=== PATIENT | female | born 1960 | race Caucasian/White ===

== ENCOUNTER 2020-12-22 10:55 | Outpatient (CLI) | payer BC, SELFPAY ==
--- NOTE | ~2020-12-22 | MM_ITS ---
EXAMINATION: MM screening renata BI w olga lidia HISTORY: Screening mammogram TECHNIQUE: Craniocaudal and mediolateral oblique 3-D tomosynthesis images were obtained and synthetic 2-D images were generated. CAD analysis was submitted and interpreted. COMPARISON: No prior mammogram is available for comparison at this institution. BREAST PARENCHYMAL COMPOSITION: There are scattered areas of fibroglandular density. FINDINGS: Scattered benign-appearing calcifications are present. There is no evidence of suspicious m ass, calcification, or architectural distortion to suggest malignancy in either breast. IMPRESSION: 1. No mammographic evidence of malignancy. 2. Recommend routine screening mammography in one year. BI-RADS Category 2: Benign finding(s). Reviewed, dictated and finalized at location A. CULTURAL SYSTEMS SPECIALIST
== END 2020-12-22 10:56 | disposition home or self-care (01) ==
DX: Z12.31 Encounter for screening mammogram for malignant neoplasm of breast (principal)
CPT/HCPCS: 77063; 77067

== ENCOUNTER 2021-01-03 03:24 | Emergency (ER) | payer BC, SELFPAY ==
--- NOTE | ~2021-01-03 | CT_ITS ---
EXAMINATION: CT abdomen pelvis w con DATE: 01/03/2021 04:35 INDICATION: Abdominal pain. TECHNIQUE: Computed tomography (CT) of the abdomen and pelvis was performed with 100 mL Omnipaque 350 intravenous contrast. Automated exposure control and iterative reconstruction technique were employe d. The dose-length product was 1476.86 mGy-cm. COMPARISON: chest CT 10/19/13 FINDINGS: The visualized portions of the lung bases demonstrate mild atelectasis. There is a 7 mm nod ule in left lower lobe, stable from 10/19/13, likely benign. Calcified bilateral lung nodules and adrienne cified hilar and mediastinal lymph nodes are consistent with old granulomatous disease. There is mild emphysema. No pleural effusion. The heart size is normal. No pericardial effusion. There is fluid in the esophagus. There is a small sliding hiatal hernia. The liver is normal. There are changes of cho lecystectomy. Calcifications in the spleen are consistent with old granulomatous disease. The pancrea s and right adrenal gland are normal. There is a 1.8 cm mass in left adrenal gland. The kidneys are n ormal. There is diverticulosis of the colon without evidence of diverticulitis. There is liquid stool in the colon suggestive of diarrhea. The appendix is normal. There is wall thickening of some loops of small bowel. There are no dilated loops of bowel. There are no pathologically enlarged lymph nodes . There is no free intraperitoneal fluid. There is severe lumbar spondylosis. There is moderate thora cic spondylosis. IMPRESSION: 1. Wall thickening of small bowel loops, likely enteritis. 2. 1.8 cm left adrenal mass, new from 10/19/2013. In the absence of known malignancy, this finding is likely an adenoma. Reviewed, dictated and finalized at location A. G[facility] PROFESSIONAL DEVELOPMENT IMPRESSION: 1. Wall thickening of small bowel loops, likely enteritis. 2. 1.8 cm left adrenal mass, new from 10/19/2013. In the absence of known malig yuan, this finding is likely an adenoma.
[2021-01-03 03:34] VITALS: BP 111/67; PULSE 92; RESP 22; TEMP 37.6; O2SAT 95
--- NOTE | 2021-01-03 03:43 | ED.ABDPAIN ---
HPI - Abdominal Pain General Chief Complaint: Abdominal Pain Stated Complaint: abd pain, n/v, headache, back pain Time Seen by Provider: 01/03/21 03:36 Source: patient Mode of arrival: ambulatory Limitations: no limitations History of Present Illness HPI narrative: Patient is a 60-year-old female complaining of nausea vomiting and diarrhea accompanied by diffuse abdominal pain that started 5 hours ago. Patient states that her vomitus is nonbloody nonbilious. Patient states that her diarrhea is loose watery. Location: diffuse Severity: moderate Quality: cramping and dull Radiation: none Migration to: no migration Exacerbating factors: bowel movement and vomiting Relieving factors: nothing Related Data Home Medications Medication Instructions Recorded Confirmed Spiriva Respimat 2 puff INHALATION DAILY 09/13/19 09/13/19 albuterol sulfate [Ventolin HFA] 2 puff INHALATION QID PRN 09/13/19 09/13/19 clonazepam 2 mg PO HS 09/13/19 09/13/19 esomeprazole magnesium [Nexium] 40 mg PO DAILY 09/13/19 09/13/19 ferrous sulfate [FerrouSul] 325 mg PO DAILY 09/13/19 09/13/19 fluticasone propion-salmeterol 1 inh INHALATION Q12H 09/13/19 09/13/19 [Advair Diskus] fluticasone propionate [Allergy 2 spray INTRANASAL DAILY 09/13/19 09/13/19 Relief (fluticasone)] isosorbide mononitrate 30 mg PO DAILY 09/13/19 09/13/19 potassium chloride 20 meq PO BID 09/13/19 09/13/19 sertraline 50 mg PO DAILY 09/13/19 09/13/19 sertraline 100 mg PO DAILY 09/13/19 09/13/19 hydrocortisone [Cortef] 30 mg PO BID 09/14/19 09/14/19 Allergies Allergy/AdvReac Type Severity Reaction Status Date / Time clams Allergy Unknown Verified 01/03/21 03:37 codeine Allergy Unknown Verified 01/03/21 03:37 horseradish Allergy Unknown Verified 01/03/21 03:37 indomethacin [From Indocin] Allergy Unknown Verified 01/03/21 03:37 shrimp Allergy Unknown Verified 01/03/21 03:37 Review of Systems Review of Systems: All systems reviewed & are unremarkable except as noted in HPI and below Constitutional: Constitutional: Denies body ache(s), Denies chills, Denies excessive sweating, Denies fatigue, Denies fever(s), Denies headache(s), Denies lethargy, Denies malaise, Denies weakness and Denies weight loss Eyes: Eyes: Denies blurry vision, Denies change in vision and Denies loss of vision ENT: Denies dizziness, Denies ear discharge, Denies headache(s), Denies lip swelling, Denies epistaxis, Denies nasal congestion, Denies neck pain, Denies throat swelling and Denies tongue swelling Cardiovascular: Cardiovascular: Denies chest pain, Denies chest pain at rest, Denies chest pain with activity, Denies diaphoresis, Denies rapid heart rate, Denies edema, Denies irregular heart rhythm, Denies lightheadedness, Denies palpitations, Denies dyspnea and Denies dyspnea on exertion Respiratory: Respiratory: Denies chest congestion, Denies cough, Denies hemoptysis, Denies dyspnea and Denies dyspnea on exertion Gastrointestinal: Gastrointestinal: Denies melena, Denies hematochezia and Denies hematemesis Musculoskeletal: Musculoskeletal: Denies abnormal gait, Denies deformity, Denies joint swelling, Denies limited range of motion, Denies neck pain and Denies numbness Neurologic: Denies Abnormal speech present, Denies abnormal gait, Denies confusion, Denies dizziness, Denies headache(s), Denies focal weakness, Denies loss of vision, Denies numbness, Denies Other visual disturbances, Denies Sensory deficit (Neuro) and Denies weakness Psychiatric: Psychiatric: Denies confusion, Denies depression, Denies auditory hallucinations, Denies homicidal ideation and Denies suicidal ideation Endocrine: Endocrine: Denies cold intolerance, Denies excessive sweating, Denies fatigue, Denies heat intolerance and Denies palpitations Hematologic/Lymphatic: Hematologic/Lymphatic: Denies easy bleeding and Denies easy bruising Allergic/Immunologic: Allergic/Immunologic: Denies lip swelling, Denies throat swelling and Denies ton
[2021-01-03 03:56] LABS: Basophils Absolute Auto 0.1 K/mm3 (0.0-0.1); Basophils Percent Auto 0.3 % (0.2-1.2); Eosinophils Absolute Auto 0.1 K/mm3 (0-0.3); Eosinophils Percent Auto 0.3 % (0-4.4); Hematocrit 48.9 % (37.0-47.0); Hemoglobin 15.7 g/dL (12.0-15.0); Immature Granulocyte Absolute 0.06 K/mm3 (0.00-0.031); Immature Granulocyte Percent A 0.4 % (0-0.5); Lymphocytes Absolute Auto 1.65 K/mm3 (0.9-3.2); Mean Corpuscular HGB Conc 32.1 g/dl (32-36); Mean Corpuscular Hemoglobin 28.2 pg (26-34); Mean Corpuscular Volume 87.8 fl (80-100); Mean Platelet Volume 9.6 fl (7.4-10.4); Monocytes Absolute Auto 0.9 K/mm3 (0.1-0.6); Monocytes Percent Auto 5.6 % (2.6-8.5); Neutrophils Absolute Auto 12.4 K/mm3 (1.3-6.7); Neutrophils Percent Auto 82.4 % (45.5-73.1); Platelet Count Result 301 k/mm3 (150-375); Red Blood Count 5.57 M/mm3 (4.2-5.4); Red Cell Distribution Width 14.6 % (11.5-14.5); White Blood Count 15.1 K/mm3 (4.5-10.0)
[2021-01-03 03:59] LABS: Estimated CRCL calculation 74 ml/min; Estimated Glomerular Filt Rate > 60
[2021-01-03] MEDS: SODIUM CHLORIDE 0.9% IV 1,000 ML 999 ML IV CONT ×2 (04:02→05:53)
[2021-01-03] MEDS: MORPHINE SULFATE (*CRX) 4 MG/ML INJ IV PUSH (04:02)
[2021-01-03] MEDS: ONDANSETRON INJ 4 MG/2 ML VIAL IV PUSH (04:02)
[2021-01-03 04:10] LABS: Alanine Aminotransferase 40 U/L (4-35); Alkaline Phosphatase 105 U/L (38-126); Anion Gap 4 mmol/L (8-16); Aspartate Amino Transferase 42 U/L (14-36); Bilirubin,Total 0.5 mg/dL (0.2-1.3); Blood Urea Nitrogen 25 mg/dL (7-17); Calcium 9.2 mg/dL (8.4-10.2); Carbon Dioxide 31 mmol/L (22-30); Chloride 106 mmol/L (98-107); Estimated CRCL calculation 74 ml/min; Estimated Glomerular Filt Rate > 60; Glucose 119 mg/dL (65-105); Lipase 71 U/L (23-300); Potassium 3.7 mmol/L (3.4-5.0); Sodium 141 mmol/L (137-145)
[2021-01-03 04:15] LABS: Lactic Acid Reflex 1.7 mmol/L (0.7-2.1)
[2021-01-03 04:19] LABS: INR 0.9; Prothrombin Time 12.6 Seconds (11.1-14.7)
[2021-01-03 04:20] LABS: Partial Thromboplastin Time 22.5 SECONDS (22.3-36.8)
[2021-01-03] MEDS: MORPHINE SULFATE (*CRX) 2 MG/ML INJ IV PUSH (05:40)
[2021-01-03 05:42] VITALS: BP 102/37; PULSE 107; RESP 28; O2SAT 98
[2021-01-03 05:51] VITALS: BP 118/71; PULSE 109; RESP 24; O2SAT 100
== END 2021-01-03 06:44 | disposition home or self-care (01) ==
PROVIDERS: Emergency Provider Emergency Medicine; PCP Internal Medicine
DX: K52.9 Noninfective gastroenteritis and colitis, unspecified (principal); E27.1 Primary adrenocortical insufficiency; M79.7 Fibromyalgia; J45.909 Unspecified asthma, uncomplicated
CPT/HCPCS: 36415; 74177; 80053; 83605; 83690; 85025; 85610; 85730; 96361; 96374; 96375; 96376; 99284; J2270; J2405; J7030; Q9967

== ENCOUNTER → 2021-01-19 10:27 | Outpatient (CLI) | payer BC, SELFPAY ==
--- NOTE | ~2021-01-19 | MR_ITS ---
EXAMINATION: MR lumbar spine wo con DATE: 01/19/2021 12:13 INDICATION: Chronic radicular low back pain and bilateral leg pain. TECHNIQUE: Magnetic resonance imaging (MRI) of the lumbar spine was performed without intravenous con trast. Sequences included sagittal T2-weighted FSE, sagittal T2-weighted FS FSE, sagittal T1-weighted FSE, and axial T2-weighted FSE. COMPARISON: CT abdomen and pelvis dated 01/03/2021 FINDINGS: Mild lumbar levocurvature. 3 mm retrolisthesis L2 on L3, L3 on L4 and L5 on S1. 3 mm anterolisthesis L4 on L5. Chronic normal likely physiologic anterior wedging at L1. Remaining vertebral body heights are normal. Severe disc height loss with fibrofatty and fibrovascular degenerative endplate changes a t L2-L3. T1 hyperintense hemangioma at T12. Marrow signal is otherwise normal. Moderate disc height l oss at T10-T11, L1-L2, L4-L5 and L5-S1. Mild to moderate disc height loss at T11-T12 and L3-L4. Mild disc height loss at T12-L1. There are annular fissures at each of these levels from T12-L1 through L5 -S1. The conus medullaris terminates at L1. There is normal signal in the caudal spinal cord. Abdomin al lipomatosis throughout the lumbar spine which contributes to central canal stenosis particularly a t L3-L5 which will be further detailed below. Paravertebral soft tissues are unremarkable. The follow ing disc levels are specifically discussed: T12-L1: Annular fissure and small right subarticular zone disc extrusion. There is mild bilateral fac et joint osteoarthritis. There is no neural foraminal stenosis. There is mild central canal stenosis. L1-L2: Disc is mildly bulging with superimposed annular fissure and right paracentral disc extrusion with a small amount of disc material extending 6 mm caudal to the level of the superior endplate of L 2. There is mild bilateral facet joint osteoarthritis. There is no neural foraminal stenosis. There i s mild central canal stenosis. L2-L3: Ferraro fissure with broad-based disc extrusion extending from foraminal zone to foraminal zone with disc material extending a few millimeters cephalad to the level of the inferior endplate of L2 at the right foraminal zone and several millimeter caudal to the level of the superior endplate of L3 across the central canal to the left neural foramen. There is minimal left and mild right facet join t osteoarthritis. There is mild to moderate left and moderate right neural foraminal stenosis. Epidur al lipomatosis resulting in concave margins to the thecal sac on both the left and right. There is mo derate central canal stenosis. L3-L4: Annular fissure with disc extrusion extending from foraminal zone to foraminal zone with disc material extending a few millimeters cephalad and caudal to the level of the endplates. There is mild left and mild to moderate right facet joint osteoarthritis. There is moderate left and mild to moder ate right neural foraminal stenosis. Epidural lipomatosis which is the primary contributer to severe central canal stenosis with convex margin of the thecal sac posteriorly and on both the left and righ t. The severe central canal stenosis extends throughout the L4 level to the L4-L5 disc space. L4-L5: Annular fissure with disc extrusion extending from foraminal zone to foraminal zone with disc material extending a few millimeters cephalad and caudal to the level of the endplates. There is wali re bilateral facet joint osteoarthritis. There is mild to moderate right and moderate left neural for aminal stenosis. There is severe central canal stenosis due in large part to epidural lipomatosis wit h severe stenosis extending caudally throughout the L5 level. L5-S1: Annular fissure with central disc extrusion with disc material extending up to 6 mm caudal to the level of the superior endplate of S1. There is mild left and moderate right facet joint osteoarth ritis. There is mild bilateral jamir
--- NOTE | ~2021-01-19 | MR_ITS ---
EXAMINATION: MR cervical spine wo con DATE: 01/19/2021 11:53 INDICATION: Chronic radicular neck pain. TECHNIQUE: Magnetic resonance imaging (MRI) of the cervical spine was performed without intravenous c ontrast. Sequences included sagittal T2-weighted FSE, sagittal T2-weighted FS FSE, sagittal T1-weight ed FSE, axial MERGE and axial T2-weighted FSE. COMPARISON: None FINDINGS: Bone alignment is normal. Vertebral body heights are normal. Schmorl's node along the inferior endpl ate of T4. Bone marrow signal intensity is normal. Moderate disc height loss at C5-C6. Mild disc heig ht loss at C4-C5 and C6-C7. Additional thoracic disc height loss, mild at T2-T3 and moderate at T3-T4 and T4-T5. Cord signal intensity is normal. Postoperative changes with foci of susceptibility artifa ct in the subcutaneous fat posterior to the mid to lower cervical spine and with metallic magnetic fi eld artifact along the left-sided lamina at C4, C5 and C6 which appear to correspond to prior left he mi-laminectomies with plate and screw fixations as seen on chest radiograph dated 09/13/2019. 1.7 cm right thyroid nodule. The following disc levels are specifically discussed: C2-C3: The disc does not extend beyond the endplate margin. There is no uncovertebral joint osteoarth ritis. There is mild right and severe left facet joint osteoarthritis. There is mild left neural fora sharda stenosis. There is no central canal stenosis. C3-C4: Disc is mildly bulging. There is mild left and moderate right uncovertebral joint osteoarthrit is. There is severe right and moderate left facet joint osteoarthritis. There is mild bilateral neura l foraminal stenosis. There is no central canal stenosis. C4-C5: Disc is bulging with annular fissure and small left paracentral disc extrusion with disc mater ial extending a few millimeters cephalad and caudal to the level of the endplates. There is moderate bilateral, left greater than right uncovertebral joint osteoarthritis. There is moderate right and li dodie moderate left facet joint osteoarthritis. Assessment of the left facet joint is however somewhat limited by the metallic magnetic field artifact. There is moderate bilateral, left greater than righ t and mild neural foraminal stenosis. There is mild central canal stenosis. C5-C6: Posterior disc osteophyte complex is present. There is severe bilateral, left greater than rig ht, uncovertebral joint osteoarthritis. There is mild right and likely moderate left facet joint oste oarthritis with assessment on the left again limited by metallic magnetic field artifact. There is mo derate bilateral neural foraminal stenosis. There is mild to moderate central canal stenosis with ind entation of the ventral surface of the cord. C6-C7: Disc is bulging. There is moderate right and severe left uncovertebral joint osteoarthritis. T here is mild right and moderate left facet joint osteoarthritis with similar limitation on the left d ue to metallic magnetic field artifact. There is moderate bilateral neural foraminal stenosis. There is moderate right-sided predominant central canal stenosis with asymmetric right-sided predominant de formation of the cord and effacement of the surrounding CSF signal. C7-T1: The disc does not extend beyond the endplate margin. There is mild bilateral uncovertebral guero nt osteoarthritis. There is mild to moderate bilateral facet joint osteoarthritis. There is no neural foraminal stenosis. There is no central canal stenosis. IMPRESSION: 1. Moderate cervical spondylosis with postoperative change of likely left-sided hemilaminectomies wit h plate and screw fixations across the left lamina of C4-C6. 2. 1.7 cm right thyroid nodule. There is foci of susceptibility artifact within the nodule which coul d be related to either dystrophic calcification or sequela of prior biopsy. Correlate for history of prior biopsy and if clinically
== END ==
PROVIDERS: Visit Provider Nurse Practitioner Family
DX: M47.22 Other spondylosis with radiculopathy, cervical region (principal); M47.26 Other spondylosis with radiculopathy, lumbar region
CPT/HCPCS: 72141; 72148

== ENCOUNTER → 2021-01-23 17:45 | Outpatient (CLI) | payer BC, SELFPAY ==
--- NOTE | ~2021-01-23 | DEXA_ITS ---
Bone Density Report Name: Liliana Gabriel Age: 60 Sex: Female Ethnicity: White Date of : 1960 Indication: postmenopausal; screening for osteoporosis; asthma or emphysema; hysterectomy; Referring Provider: CollinJill Study: Bone densitometry was performed. Exam Date: January 23, 2021 Accession number: [id number] Bone Density: Region BMD T-score Z-score Classification AP Spine (L1, L4) 0.946 -0.8 0.5 Normal Femoral Neck (Left) 0.700 -1.3 -0.1 Osteopenia Total Hip (Left) 0.944 0.0 0.9 Normal Femoral Neck (Right) 0.700 -1.3 -0.1 Osteopenia Total Hip (Right) 0.890 -0.4 0.5 Normal Total Hip Mean 0.917 -0.2 0.7 Normal World Health Organization criteria for BMD impression classify patients as: Normal (T-score at or above -1.0), Osteopenia (T-score between -1.0 and -2.5), or Osteoporosis (T-score at or below -2.5). 10-year Fracture Risk(1): Major Osteoporotic Fracture 6.6% Hip Fracture 0.4% Reported Risk Factors: [place] (), Neck BMD=0.700, BMI=37.0 (1) FRAX(R) Version 3.08. Fracture probability calculated for an untreated patient. Fracture probability may be lower if the patient has received treatment. Clinical Information Provided by Patient: Has used the following medications: Vitamin D, Calcium, Hydrocortisone Has the following medical conditions: Asthma or Emphysema, Hysterectomy Patient maximum height was 63.7 Menopause Age: 26 No regular weight bearing exercise Onset of menses at age 10 Number of children 2 Impression: The patient has low bone mass, based on the Left Femoral Neck T-score. The patient has an estimated ten-year risk of hip fracture of 0.4% and an estimated ten-year risk of major fracture of 6.6%, based on the WHO FRAX algorithm. Discussion: BONE DENSITY IS LOW AT ONE OR MORE SKELETAL SITES. This patient's lowest T-score is low at one or more skeletal sites. It meets the World Health Organization's (WHO) criteria for ?low bone mass? (T-score between -1.0 and -2.5). The patient's 10-year risk of fracture as calculated by FRAX is less than the threshold where pharmacological therapy is recommended by the National Osteoporosis Foundation (NOF). However, all treatment decisions require clinical judgment and consideration of individual patient factors, including patient preferences, comorbidities, previous drug use, risk factors not captured in the FRAX model (e.g., frailty, falls, vitamin D deficiency, increased bone turnover, interval significant decline in bone density) and possible under or overestimation of fracture risk by FRAX. The patient should follow a healthful lifestyle (good nutrition with adequate calcium and vitamin D, and appropriate weight-bearing exercise). Follow-Up: Consider repeating this study in 2 to 3 years to reassess this patient's s
== END ==
PROVIDERS: Visit Provider Internal Medicine Endocrinology, Diabetes & Metabolism
DX: E27.3 Drug-induced adrenocortical insufficiency (principal); T38.0X5A Adverse effect of glucocorticoids and synthetic analogues, initial encounter; M85.852 Other specified disorders of bone density and structure, left thigh; M85.851 Other specified disorders of bone density and structure, right thigh
CPT/HCPCS: 77080

== ENCOUNTER 2021-02-04 08:17 | Inpatient (IN) | payer BC, SELFPAY ==
[2021-02-04] VITALS (14 sets, daily range): BP systolic 99–122; BP diastolic 43–65; PULSE 84–116; RESP 20–40; TEMP 37.1–37.8; O2SAT 81–95; BMI 37.5
--- NOTE | ~2021-02-04 | XR_ITS ---
EXAMINATION: XR chest 1V portable DATE: 02/04/2021 09:01 INDICATION: Shortness of breath and cough TECHNIQUE: frontal view of the chest was obtained. COMPARISON: Chest radiograph dated 09/13/2019 FINDINGS: Persistent mild elevation of the right hemithorax. There are regions of consolidation in the left mid and left lower lung zones. More subtle airspace opacity in the right lower lung zone. No pleural eff usion or pneumothorax. Likely left-sided laminectomies with plate and screw fixations at C4-C6. IMPRESSION: 1. Patchy bilateral airspace opacities most prominent in the left mid to lower lung zone concerning f or pneumonia. Reviewed, dictated and finalized at location B. IMPRESSION: 1. Patchy bilateral airspace opacities most prominent in the left mid to lower lung zone concerning for pneumonia.
--- NOTE | ~2021-02-04 | XR_ITS ---
EXAMINATION: XR soft tissue neck DATE: 02/06/2021 10:51 INDICATION: Acute on chronic laryngeal spasms. TECHNIQUE: 2 views of the neck soft tissues were obtained. COMPARISON: Chest CT 02/06/2021 FINDINGS: The adenoids, palatine tonsils, prevertebral soft tissues, epiglottis, and airway are abbie l. There are changes of laminectomies in cervical spine with instrumentation. IMPRESSION: 1. Normal neck soft tissues. Reviewed, dictated and finalized at location A.
--- NOTE | ~2021-02-04 | CT_ITS ---
EXAMINATION: CTA chest PE protocol EXAM DATE: 02/06/2021 10:52 INDICATION: Bilateral pneumonia. Left pleuritic chest pain. TECHNIQUE: Spiral CTA of the chest (pulmonary arteries) was performed with 100 cc Omnipaque 350 intr avenous contrast injection. Images were acquired during the pulmonary arterial phase. Coronal maxi mum intensity projection 3D-reconstructions were created by the technologist on dedicated workstation . Axial, coronal and sagittal reformatted images were reviewed. The dose-length product (DLP) for t his examination was 651.12 mGy-cm. The exposure was tailored according to patient size (auto mA exp osure control), and iterative reconstruction (ASIR) was used as additional dose reduction technique. Comparison is made to prior examination from 10/19/2013. FINDINGS: Pulmonary arteries are well opacified and without intraluminal filling defects. No thora cic aortic dissection. There is multi segmental bilateral lower lobe, lingular and left upper lobe ai rspace disease with volume loss, indicating this is partly atelectasis. There is some right lower lob e endobronchial debris suspected. There may well be superimposed pneumonia as well. There are small b ilateral pleural effusions. Mildly enlarged prevascular lymph node at 1.4 x 1.0 cm probably reactiv e. There is no pneumothorax. Heart normal in size. There is mild coronary arterial calcification , arterial sclerosis. There are cholecystectomy clips. There is small sliding gastroesophageal hiata l hernia. Small gastric cardial diverticulum. Small amount of pneumobilia. There is mild to moderate thoracic spondylosis without osteoblastic or osteolytic lesions identified. IMPRESSION: 1. Multi segmental bibasilar, lingular and left upper lobe atelectasis and probably pneumonia (more likely bacterial and viral). 2. Small bilateral pleural effusions. 3. No pulmonary emboli. Reviewed, dictated and finalized at location A. IMPRESSION: 1. Multi segmental bibasilar, lingular and left upper lobe atelectasis and pro bably pneumonia (more likely bacterial and viral). 2. Small bilateral pleural effusions. 3. No pulmonary emboli.
--- NOTE | ~2021-02-04 | US_ITS ---
EXAMINATION: US venous doppler LE EXAM DATE: 02/05/2021 13:37 INDICATION: Bilateral leg edema, pain. TECHNIQUE: Multiple grayscale, color flow and Doppler images of the lower extremity deep venous syste ms bilaterally were obtained and reviewed. There is no prior study for comparison. FINDINGS: Right side: The right common femoral, femoral and profunda veins demonstrate normal color flow, respi ratory variation, augmentation and compressibility. Compressibility, color flow confirmed within the right popliteal, posterior tibial, peroneal, and greater saphenous veins. Left side: The left common femoral, femoral and profunda veins demonstrate normal color flow, respira tory variation, augmentation and compressibility. Compressibility, color flow confirmed within the l eft popliteal, posterior tibial, peroneal, and greater saphenous veins. IMPRESSION: 1. No lower extremity deep venous thrombosis bilaterally. Reviewed, dictated and finalized at location A.
--- NOTE | ~2021-02-04 | XR_ITS ---
EXAMINATION: XR chest 2V EXAM DATE: 02/10/2021 08:13 INDICATION: Pneumonia, SOB, cough, history of asthma. TECHNIQUE: Frontal and lateral projections of the chest obtained and reviewed. Comparison is made to prior examination from 02/04/2021. FINDINGS: Again there is bilateral airspace disease probably pneumonia. Compared to prior study there is probably some interval improvement, but also development of atelectasis in the affected segments. Cardiomediastinal silhouette is normal. There is no pneumothorax suspected. Possible small pleural e ffusions. There are cholecystectomy clips. IMPRESSION: Mild improvement in bilateral pneumonia, but development of some volume loss, superimpose d atelectasis. Reviewed, dictated and finalized at location A. IMPRESSION: Mild improvement in bilateral pneumonia, but development of some vo lume loss, superimposed atelectasis.
--- NOTE | 2021-02-04 08:37 | ECG_ITS ---
Measurements Intervals [place] Rate: 117 P: 34 [place]: 128 QRS: 26 QRSD: 77 T: 17 QT: 349 QTc: 487 Interpretive Statements SINUS TACHYCARDIA INCOMPLETE RIGHT BUNDLE BRANCH BLOCK NONSPECIFIC ST & T-WAVE ABNORMALITY- ANT/INF LEADS BASELINE ARTIFACT- I, II, III, AVR, AVL, AVF ABNORMAL ECG Electronically Signed On 02-04-2021 8:49:44 CDT by Carlos Peng D.O.
[2021-02-04 08:46] LABS: Basophils Absolute Auto 0.1 K/mm3 (0.0-0.1); Basophils Percent Auto 0.3 % (0.2-1.2); Eosinophils Percent Auto 0.1 % (0-4.4); Hematocrit 44.4 % (37.0-47.0); Hemoglobin 14.3 g/dL (12.0-15.0); Immature Granulocyte Absolute 0.08 K/mm3 (0.00-0.031); Immature Granulocyte Percent A 0.5 % (0-0.5); Lymphocytes Absolute Auto 1.48 K/mm3 (0.9-3.2); Lymphocytes Percent Auto 8.9 % (18.3-44.2); Mean Corpuscular HGB Conc 32.2 g/dl (32-36); Mean Corpuscular Hemoglobin 27.6 pg (26-34); Mean Corpuscular Volume 85.5 fl (80-100); Monocytes Absolute Auto 0.7 K/mm3 (0.1-0.6); Monocytes Percent Auto 4.4 % (2.6-8.5); Neutrophils Absolute Auto 14.3 K/mm3 (1.3-6.7); Neutrophils Percent Auto 85.8 % (45.5-73.1); Platelet Count Result 236 k/mm3 (150-375); Red Blood Count 5.19 M/mm3 (4.2-5.4); Red Cell Distribution Width 14.9 % (11.5-14.5); White Blood Count 16.7 K/mm3 (4.5-10.0)
[2021-02-04 09:02] LABS: Anion Gap 6 mmol/L (8-16); Blood Urea Nitrogen 17 mg/dL (7-17); Calcium 8.9 mg/dL (8.4-10.2); Carbon Dioxide 28 mmol/L (22-30); Chloride 101 mmol/L (98-107); Estimated CRCL calculation 81 ml/min; Estimated Glomerular Filt Rate > 60; Glucose 108 mg/dL (65-105); Potassium 3.6 mmol/L (3.4-5.0); Sodium 135 mmol/L (137-145)
--- NOTE | 2021-02-04 09:05 | ED.SOB ---
HPI - SOB/Dyspnea General Chief Complaint: Shortness of Breath/Dyspnea Stated Complaint: shoulder pain Time Seen by Provider: 02/04/21 08:38 History of Present Illness HPI Narrative: Patient is a 60-year-old female who presents ER with shortness of breath. Beginning yesterday. Associate with fever today. Patient is not typically oxygen dependent but is now on 3 L. 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 She also has history of vocal cord spasm which she reports started up yesterday as well. She has not received any injections or medications for this. Related Data Home Medications Medication Instructions Recorded Confirmed Spiriva Respimat 2 puff INHALATION DAILY 09/13/19 02/04/21 albuterol sulfate [Ventolin HFA] 2 puff INHALATION QID PRN 09/13/19 02/04/21 clonazepam 2 mg PO HS 09/13/19 02/04/21 fluticasone propion-salmeterol 1 inh INHALATION Q12H 09/13/19 02/04/21 [Advair Diskus] fluticasone propionate [Allergy 2 spray INTRANASAL DAILY 09/13/19 02/04/21 Relief (fluticasone)] isosorbide mononitrate 30 mg PO DAILY 09/13/19 02/04/21 hydrocortisone [Cortef] 30 mg PO BID 09/14/19 02/04/21 Allergies Allergy/AdvReac Type Severity Reaction Status Date / Time clams Allergy Unknown Verified 02/04/21 12:14 codeine Allergy Unknown Verified 02/04/21 12:14 horseradish Allergy Unknown Verified 02/04/21 12:14 indomethacin [From Indocin] Allergy Unknown Verified 02/04/21 12:14 Iodine and Iodide Containing Allergy Unknown Verified 02/04/21 12:14 Produc shellfish derived Allergy Unknown Verified 02/04/21 12:14 shrimp Allergy Unknown Verified 02/04/21 12:14 Review of Systems Review of Systems: All systems reviewed & are unremarkable except as noted in HPI and below Constitutional: Constitutional: Reports chills, Reports fever(s) and Reports weakness Cardiovascular: Cardiovascular: Denies chest pain and Denies radiating jaw, neck or arm pain Respiratory: Respiratory: Reports chest congestion, Reports cough and Reports dyspnea Gastrointestinal: Gastrointestinal: Denies abdominal pain, Denies nausea and Denies vomiting [facility] Past Medical History Medical History (Updated 02/04/21 @ 18:36 by Osiel Caceres MD) Parth disease Asthma Degenerative disc disease Fibromyalgia Spasm of vocal cords Surgical History Surgical History (Updated 02/04/21 @ 13:56 by Helen Riddle PA-C) History of cardiac catheterization (~2013) History of cervical spinal surgery History of section History of cholecystectomy History of hysterectomy Family History Family History Mother Heart disease Mother Heart disease Father Heart disease Social History Social History (Updated 02/04/21 @ 13:57 by Helen Riddle PA-C) Social History: Surrogate decision maker: Donis Gabriel, . Code status: Full code. Smoking status: Never smoker Alcohol intake: never Substance use: never Additional living arrangements comments: The patient lives with her family in [place]. Gender identity (if verbalized by the patient): Female Sexual Orientation (if Verbalized by the Patient): Straight or Heterosexual Spiritual care concerns: No Agree to blood products: Yes Exam Narrative: Exam Narrative: GENERAL: Well-appearing, well-nourished, and in no acute distress. HEAD: Normocephalic, atraumatic. Neck: Supple. CHEST: Coarse Rales.. No respiratory distress. Frequent coughing HEART: Tachycardic regular. Normal peripheral pulses. ABDOMEN: Soft, nontender, nondistended. EXTREMITIES: Normal range of motion. No edema. SKIN: Warm, dry, no rash. NEURO: Alert and oriented x3. PSYCH: Normal mood and affect. Course Course Emergency Course: Patient given IV antibiotics in addition to home steroid dose due to [place] disease. Vital Signs Vital signs: Vital Signs Temperature 100.1 F H 02/04/21 08:43 Pu
[2021-02-04 09:14] LABS: Lactic Acid Reflex 2.1 mmol/L (0.7-2.1)
[2021-02-04 09:35] LABS: Partial Thromboplastin Time 27.7 SECONDS (22.3-36.8); Prothrombin Time 13.9 Seconds (11.1-14.7)
[2021-02-04] MEDS: HYDROCORTISONE 10 MG TABLET 20 MG PO (09:37)
[2021-02-04] MEDS: HYDROcodone/acetaminophen (*CRX) 5-325 MG TABLET 1 TAB PO (09:37)
[2021-02-04 09:42] LABS: NT Pro B Type Natriuretic Pept 323 PG/ML (5-100); Troponin I < 0.012 ng/mL (0.000-0.034)
[2021-02-04] MEDS: ONDANSETRON INJ 4 MG/2 ML VIAL IV PUSH (10:49)
[2021-02-04 12:01] LABS: Reflex Lactic Acid Yes or No Add Lactic
--- NOTE | 2021-02-04 12:04 | ADMGEN ---
This patient, Liliana Gabriel, was admitted to [facility] Surg Room 312-01. Patient/family oriented to hospital policies and general routines including ID bracelet, bed and alarms, visiting hours, pain management, procedures, bathroom and other care routines, personal items, smoking policy, room service/diet, and visiting hours. Information on how to activate the Rapid Response Team has been discussed. Patient/Family are encouraged to report perceived risks to care and to ask questions if they do not understand what they are told or what they should do.
[2021-02-04] MEDS: LACTATED RINGERS 1,000 ML 125 ML IV CONT (12:25)
[2021-02-04] MEDS: ACETAMINOPHEN 325 MG TABLET 650 MG PO (12:38)
[2021-02-04 12:47] LABS: Lactic Acid 1.8 mmol/L (0.7-2.1)
--- NOTE | 2021-02-04 14:00 | PM.IMHP ---
H&P: HPI History of Present Illness Date/Time: 02/04/21 14:00 Chief Complaint: Shortness of breath. Narrative: This a 60-year-old female with asthma, vocal cord dysfunction, hypertension, and Mcduffie's disease who presented to the emergency department earlier today for evaluation of shortness of breath. Yesterday she began feeling short of breath which she attributed to vocal cord spasms and that continued throughout the night and she really did not sleep much. She does have a cough which is really productive of thick green mucus. She has also had intermittent discomfort in the left chest which sounds to be pleuritic in nature. Her symptoms continued on through this morning and she noted that her SpO2 was dropping as low as 81% on room air which prompted her to come into the emergency department. Chest x-ray showed patchy bilateral airspace opacities concerning for pneumonia and she reports having had pneumonia several times previously. With further questioning she does endorse occasional dysphagia but does not think that she has had any issues with aspiration. She has been running a low-grade fever up to 100.8? at home this morning and has had intermittent chills and hot flashes. At the time my evaluation she is having sweats. She denies sick contacts. She had COVID-19 in November 2020 and she states these symptoms are not similar. No anosmia or dysgeusia. She denies exertional chest pain and palpitations. No orthopnea, PND, or lower extremity edema. She has not had sinus congestion, rhinorrhea, otalgia, or odynophagia. No nausea, vomiting, or diarrhea. Review of Systems Review of Systems: Narrative: Twelve systems were reviewed with pertinent positives and negatives as per HPI. No headache. She denies syncope and near syncope. Blood pressures are stable. No nausea, vomiting, or diarrhea. No dysuria. She denies lower extremity edema. No calf pain or tenderness. No history of venous thromboembolism. Except as documented, all other systems were reviewed and are negative. [facility] Past Medical History Medical History (Updated 02/04/21 @ 21:08 by Helen Riddle PA-C) Mcduffie disease Asthma Coronary artery disease Per patient, she has mild non obstructing coronary artery disease noted on cardiac catheterization in 2013. She is reportedly taking Imdur for this. Degenerative disc disease Fibromyalgia Gastroesophageal reflux disease Vocal cord dysfunction Surgical History Surgical History (Updated 02/04/21 @ 21:07 by Helen Riddle PA-C) History of cardiac catheterization (~2013) Per patient, mild nonobstructing disease. History of cervical spinal surgery History of section History of cholecystectomy History of hysterectomy Family History Family History Mother Heart disease Mother Heart disease Father Heart disease Social History Social History (Updated 02/04/21 @ 21:08 by Helen Riddle PA-C) Social History: Surrogate decision maker: Donis Gabriel, . Code status: Full code. Smoking status: Never smoker Alcohol intake: never Substance use: never Additional living arrangements comments: The patient lives with her and their dogs in [place]. They have 2 children. Additional occupation/education comments: Unemployed. Gender identity (if verbalized by the patient): Female Sexual Orientation (if Verbalized by the Patient): Straight or Heterosexual Spiritual care concerns: No Agree to blood products: Yes Meds Home Medications and Allergies Home Medications Medication Instructions Recorded Confirmed Type Spiriva Respimat 2 puff INHALATION DAILY 09/13/19 02/04/21 History albuterol sulfate [Ventolin HFA] 2 puff INHALATION QID PRN 09/13/19 02/04/21 History clonazepam 2 mg PO HS 09/13/19 02/04/21 History fluticasone propion-salmeterol 1 inh INHALATION Q12H 09/13/19 02/04/21 History [Advair Diskus]
[2021-02-04] MEDS: HYDROCORTISONE 10 MG TABLET 30 MG PO (16:00)
[2021-02-04 19:29] LABS: SARS-CoV-2 RNA PCR Negative
[2021-02-04] MEDS: ALBUTEROL SULFATE NEB 2.5 MG/0.5 ML INH 5 MG INHALATION (21:33)
[2021-02-04] MEDS: IPRATROPIUM BR 0.02% INH SOLN 0.5 MG/2.5 ML VIAL INHALATION (21:33)
[2021-02-04] MEDS: FLUTICASONE/SALMETEROL 230-21 MCG INHALER 1 PUFF 2 PUFF INHALATION (21:35)
[2021-02-05] VITALS (13 sets, daily range): BP systolic 99–112; BP diastolic 48–56; PULSE 79–100; RESP 18–20; TEMP 37.3–37.6; O2SAT 91–99
[2021-02-05] MEDS: clonazePAM (*CRX) 0.5 MG TABLET 2 MG PO ×2 (00:20→22:11)
[2021-02-05] MEDS: LACTATED RINGERS 1,000 ML 125 ML IV CONT (00:22)
[2021-02-05] MEDS: IPRATROPIUM BR 0.02% INH SOLN 0.5 MG/2.5 ML VIAL INHALATION ×4 (01:49→20:26)
[2021-02-05] MEDS: ALBUTEROL SULFATE NEB 2.5 MG/0.5 ML INH 5 MG INHALATION ×4 (01:49→20:26)
[2021-02-05 06:14] LABS: Hematocrit 42.2 % (37.0-47.0); Hemoglobin 13.6 g/dL (12.0-15.0); Mean Corpuscular HGB Conc 32.2 g/dl (32-36); Mean Corpuscular Volume 86.8 fl (80-100); Mean Platelet Volume 10.1 fl (7.4-10.4); Platelet Count Result 243 k/mm3 (150-375); Red Blood Count 4.86 M/mm3 (4.2-5.4); White Blood Count 19.2 K/mm3 (4.5-10.0)
[2021-02-05 06:43] LABS: Alanine Aminotransferase 125 U/L (4-35); Albumin Level 3.5 g/dL (3.5-5.1); Alkaline Phosphatase 110 U/L (38-126); Anion Gap 3 mmol/L (8-16); Aspartate Amino Transferase 102 U/L (14-36); Bilirubin,Total 0.6 mg/dL (0.2-1.3); Blood Urea Nitrogen 14 mg/dL (7-17); Calcium 9.4 mg/dL (8.4-10.2); Carbon Dioxide 32 mmol/L (22-30); Chloride 104 mmol/L (98-107); Estimated CRCL calculation 74 ml/min; Estimated Glomerular Filt Rate > 60; Glucose 99 mg/dL (65-105); Lactate Dehydrogenase 397 U/L (313-618); Magnesium 2.1 mg/dL (1.6-2.3); Potassium 3.7 mmol/L (3.4-5.0); Sodium 139 mmol/L (137-145)
[2021-02-05 07:30] LABS: CRP 39.9 mg/dL (<1.0)
[2021-02-05] MEDS: HYDROCORTISONE 10 MG TABLET 30 MG PO ×2 (07:51→17:27)
[2021-02-05] MEDS: FLUTICASONE PROPIONATE 0.05% NA SPR 16 GM BTL (*BKC) 2 SPRAY NASAL (07:51)
[2021-02-05] MEDS: ENOXAPARIN 40 MG/0.4 ML SYRINGE SUB-Q (07:52)
[2021-02-05] MEDS: ISOSORBIDE MONONITRATE 30 MG TAB.ER.24H PO (07:52)
[2021-02-05] MEDS: FLUTICASONE/SALMETEROL 230-21 MCG INHALER 1 PUFF 2 PUFF INHALATION ×2 (08:09→20:34)
[2021-02-05] MEDS: HYDROcodone/acetaminophen (*CRX) 5-325 MG TABLET 1 TAB PO ×2 (10:02→22:17)
--- NOTE | 2021-02-05 10:53 | PM.IMPN ---
Progress Note: A&P Assessment and Plan (1) Bilateral pneumonia: Qualifiers: Pneumonia type: due to unspecified organism Lung location: unspecified part of lung Qualified Code(s): J18.9 - Pneumonia, unspecified organism Code(s): J18.9 - Pneumonia, unspecified organism Status: Acute Assessment and Plan: Suspected bacterial pneumonia; COVID negative. She had COVID-19 infection in Nov 2020. Sputum culture pending, legionella and pneumococcal urine antigen pending. Continue azithromycin and rocephin (day 2). Continue nebulized bronchodilator therapy with duo nebs, add incentive spirometry. (2) Acute respiratory failure with hypoxia: Code(s): J96.01 - Acute respiratory failure with hypoxia Status: Acute Assessment and Plan: Secondary to underlying pneumonia. Wean oxygen as tolerated to keep O2 saturations > 90%. (3) Sepsis: Qualifiers: Sepsis type: sepsis due to unspecified organism Sepsis acute organ dysfunction status: without acute organ dysfunction Qualified Code(s): A41.9 - Sepsis, unspecified organism Code(s): A41.9 - Sepsis, unspecified organism Status: Acute Assessment and Plan: Present on admission supported by fever, tachycardia, tachypnea, and leukocytosis. Suspected source is respiratory. Will check UA. Blood cultures pending with no growth to date. Lactic acid within normal limits. Continue antibiotics as above. Monitor leukocytosis with daily labs. Monitor vital signs and urine output. (4) Person under investigation for COVID-19: Code(s): Z20.822 - Contact with and (suspected) exposure to COVID-19 Status: Ruled-out Assessment and Plan: COVID negative by PCR. (5) Asthma: Qualifiers: Asthma severity: unspecified severity Asthma persistence: unspecified Asthma complication type: unspecified Qualified Code(s): J45.909 - Unspecified asthma, uncomplicated Code(s): J45.909 - Unspecified asthma, uncomplicated Status: Chronic Assessment and Plan: No acute bronchospasm. Continue bronchodilators and home respiratory regimen. (6) [place] disease: Code(s): E27.1 - Primary adrenocortical insufficiency Status: Chronic Assessment and Plan: Blood pressure and electrolytes are stable. Continue her Cortef. Her meal temperer is Dr Jill Polanco. Patient notes she has been told in the past to stress-dose her Cortef when she is sick but that she does not normally do that. Attempted to contact Dr Polanco's office regarding her Cortef dose with no answer, will try again later. Subjective Date/time seen: 02/05/21 10:30 Interval history: Ms. Gabriel is a 60yo F admitted with acute respiratory failure and pneumonia. She has history of vocal cord spasms and she reports having worsening spasms in the last couple days that leave her short of breath. She notes overall her shortness of breath today feels improved compared to yesterday but she still feels pretty unwell. She has productive cough. She has abdominal cramping with coughing but not at rest; no nausea or vomiting. Denies chest pain. She describes she has had issues swallowing in the past and has some mid sternal burning after eating, has had what sound to be esophageal dilations in the past. Review of Systems Review of Systems: All systems reviewed & are unremarkable except as noted in HPI and below Exam Narrative: Exam Narrative: General: Mildly ill-appearing female sitting up in bed no acute distress. HEENT: Normocephalic, EOMI, oral mucosa tacky. Neck: Supple. No stridor. Respiratory: Respirations are even and nonlabored. She is speaking in full sentences. Danyell
[2021-02-05 13:12] LABS: Add Urine Microscopic? NO; Appearance Urine Clear (Clear); Bilirubin Urine Negative (Negative); Blood Urine Negative (Negative); Color Urine Straw (Yellow); Glucose Urine UA Negative (Negative); Ketones Urine Negative (Negative); Leukocyte Esterase Ur Negative LEU/UL (Negative); Nitrate Urine Negative (Negative); Protein Urine Negative (Negative); Specific Grav Ur 1.005 (1.001-1.035); Urobilinogen Urine Negative mg/dL (<2.0)
--- NOTE | 2021-02-05 13:51 | PCSTNOTE ---
Attempted to see pt for a bedside swallow evaluation; per nursing, she just left the floor for an ultra sound. ST will attempt again upon pt's return to the floor.
[2021-02-05] MEDS: CYCLOBENZAPRINE HCL 10 MG TABLET PO (22:17)
[2021-02-06] VITALS (12 sets, daily range): BP systolic 97–120; BP diastolic 51–68; PULSE 82–96; RESP 18–24; TEMP 36.4–37; O2SAT 92–96
[2021-02-06] MEDS: IPRATROPIUM BR 0.02% INH SOLN 0.5 MG/2.5 ML VIAL INHALATION ×4 (02:06→20:09)
[2021-02-06] MEDS: ALBUTEROL SULFATE NEB 2.5 MG/0.5 ML INH 5 MG INHALATION ×4 (02:06→20:08)
[2021-02-06 06:17] LABS: Basophils Percent Auto 0.2 % (0.2-1.2); Eosinophils Percent Auto 0.2 % (0-4.4); Hematocrit 39.6 % (37.0-47.0); Hemoglobin 12.5 g/dL (12.0-15.0); Immature Granulocyte Absolute 0.07 K/mm3 (0.00-0.031); Immature Granulocyte Percent A 0.6 % (0-0.5); Lymphocytes Absolute Auto 1.47 K/mm3 (0.9-3.2); Lymphocytes Percent Auto 12.1 % (18.3-44.2); Mean Corpuscular HGB Conc 31.6 g/dl (32-36); Mean Corpuscular Hemoglobin 27.5 pg (26-34); Mean Platelet Volume 10.5 fl (7.4-10.4); Monocytes Absolute Auto 0.7 K/mm3 (0.1-0.6); Monocytes Percent Auto 5.5 % (2.6-8.5); Neutrophils Absolute Auto 9.9 K/mm3 (1.3-6.7); Neutrophils Percent Auto 81.4 % (45.5-73.1); Platelet Count Result 251 k/mm3 (150-375); Red Blood Count 4.55 M/mm3 (4.2-5.4); White Blood Count 12.1 K/mm3 (4.5-10.0)
[2021-02-06 06:42] LABS: Alanine Aminotransferase 92 U/L (4-35); Albumin Level 3.3 g/dL (3.5-5.1); Alkaline Phosphatase 104 U/L (38-126); Anion Gap 2 mmol/L (8-16); Aspartate Amino Transferase 55 U/L (14-36); Bilirubin,Total 0.3 mg/dL (0.2-1.3); Blood Urea Nitrogen 12 mg/dL (7-17); Calcium 8.8 mg/dL (8.4-10.2); Carbon Dioxide 35 mmol/L (22-30); Chloride 104 mmol/L (98-107); Estimated CRCL calculation 83 ml/min; Estimated Glomerular Filt Rate > 60; Glucose 108 mg/dL (65-105); Magnesium 2.3 mg/dL (1.6-2.3); Sodium 141 mmol/L (137-145)
[2021-02-06] MEDS: ENOXAPARIN 40 MG/0.4 ML SYRINGE SUB-Q (09:07)
[2021-02-06] MEDS: ISOSORBIDE MONONITRATE 30 MG TAB.ER.24H PO (09:08)
[2021-02-06] MEDS: FLUTICASONE PROPIONATE 0.05% NA SPR 16 GM BTL (*BKC) 2 SPRAY NASAL (09:08)
[2021-02-06] MEDS: HYDROCORTISONE 10 MG TABLET 30 MG PO ×2 (09:09→17:48)
[2021-02-06] MEDS: FLUTICASONE/SALMETEROL 230-21 MCG INHALER 1 PUFF 2 PUFF INHALATION ×2 (09:16→20:09)
[2021-02-06] MEDS: CYCLOBENZAPRINE HCL 10 MG TABLET PO ×2 (09:18→20:40)
[2021-02-06] MEDS: HYDROcodone/acetaminophen (*CRX) 5-325 MG TABLET 1 TAB PO ×2 (09:18→20:38)
--- NOTE | 2021-02-06 10:00 | ECG_ITS ---
Measurements Intervals [place] Rate: 89 P: 63 SC: 135 QRS: 48 QRSD: 86 T: 18 QT: 365 QTc: 445 Interpretive Statements SINUS RHYTHM INCOMPLETE RIGHT BUNDLE BRANCH BLOCK BORDERLINE T WAVE ABNORMALITY- ANT/INF LEADS BASELINE WANDER- V3, V6 BORDERLINE ECG Electronically Signed On 02-06-2021 11:48:21 CDT by Carlos Peng D.O.
--- NOTE | 2021-02-06 10:18 | PM.IMPN ---
Progress Note: A&P Assessment and Plan (1) Bilateral pneumonia: Qualifiers: Pneumonia type: due to unspecified organism Lung location: unspecified part of lung Qualified Code(s): J18.9 - Pneumonia, unspecified organism Code(s): J18.9 - Pneumonia, unspecified organism Status: Acute Assessment and Plan: Suspected bacterial pneumonia; COVID negative by PCR. She had COVID-19 infection in Nov 2020. Sputum culture has isolated Strep pneumo. Legionella and pneumococcal urine antigens are pending. Continue Rocephin (day 3) for Strep pneumonia; continue azithromycin for now (day 3) for anti-inflammatory properties pending pulmonology input. Continue nebulized bronchodilator therapy with duo nebs, incentive spirometry is resulting in laryngeal spasms per patient. New pleuritic chest pain on left this morning may be related to her pneumonia itself however will obtain CTA chest to evaluate for PE. She has iodine allergy listed however after further questioning this is only a shrimp and clam allergy and she tolerated a CT with contrast at our facility 1 month ago without any allergic symptoms. (2) Acute respiratory failure with hypoxia: Code(s): J96.01 - Acute respiratory failure with hypoxia Status: Acute Assessment and Plan: Secondary to underlying pneumonia. Also with chronic asthma. Wean oxygen as tolerated to keep O2 saturations > 90%. (3) Sepsis: Qualifiers: Sepsis type: sepsis due to unspecified organism Sepsis acute organ dysfunction status: without acute organ dysfunction Qualified Code(s): A41.9 - Sepsis, unspecified organism Code(s): A41.9 - Sepsis, unspecified organism Status: Acute Assessment and Plan: Present on admission supported by fever, tachycardia, tachypnea, and leukocytosis. Suspected source is pneumococcal pneumonia. UA is clear. Blood cultures pending with no growth to date. Lactic acid within normal limits. Continue antibiotics as above. Monitor leukocytosis with daily labs, improved today. Monitor vital signs and urine output. (4) Asthma: Qualifiers: Asthma severity: unspecified severity Asthma persistence: unspecified Asthma complication type: unspecified Qualified Code(s): J45.909 - Unspecified asthma, uncomplicated Code(s): J45.909 - Unspecified asthma, uncomplicated Status: Chronic Assessment and Plan: No acute bronchospasm at present. Continue bronchodilators and home Advair. Appreciate pulmonology input. She follows with an asthma/facilities specialist Dr Aj Palacio. 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 Continue her Cortef. Her blast furnace keeper is Dr Jill Polanco. Patient notes she has been told in the past to stress-dose her Cortef when she is sick but that she does not normally do that. Attempted to contact Dr Polanco's office regarding her Cortef dose with no answer thus far. (6) Vocal cord dysfunction: Code(s): J38.3 - Other diseases of vocal cords Status: Chronic Assessment and Plan: Patient describes she has had vocal cord spasms on and off for years. She is having more spasms here in the hospital while she is ill. She describes the incentive spirometry brought on a significant spasm last night that left her very short of breath. No stridor. Airway is protected at present. Will obtain XR soft tissue neck this AM (avoid CT neck while down for CTA chest today as this will require two [id number] doses of contrast, will hold off on CT evaluation of neck for now and get the XR). Subj
[2021-02-06 12:38] LABS: Troponin I < 0.012 ng/mL (0.000-0.034)
--- NOTE | 2021-02-06 16:41 | PM.CNPUL ---
Assessment and Plan Assessment and plan (1) Pneumonia: Code(s): J18.9 - Pneumonia, unspecified organism Status: Acute Assessment and Plan: Patient presents with shortness of breath and grew out streptococcal pneumonia in her sputum and has dense consolidations in her lower lobes lingula and left upper lobe. Patient's white blood cell count is decreased to 12.1K today. There is no pulmonary emboli on the CT angiogram. Patient is currently being treated with ceftriaxone and azithromycin and I would continue ceftriaxone pending sensitivities. Azithro for total 5 days. patient will need home O2 assessment prior to discharge. given the extent of her pulmonary infiltrates she will likely require supplemental oxygen on discharge. (2) Vocal cord dysfunction: Code(s): J38.3 - Other diseases of vocal cords Status: Chronic Assessment and Plan: Patient states that she was having more vocal cord spasms this morning but she is now improved this afternoon. Would recommend she continue her neck stretching exercises relaxation techniques and slowing her speech down for additional spasms at this time. (3) Asthma: Qualifiers: Asthma severity: unspecified severity Asthma persistence: unspecified Asthma complication type: unspecified Qualified Code(s): J45.909 - Unspecified asthma, uncomplicated Code(s): J45.909 - Unspecified asthma, uncomplicated Status: Chronic Assessment and Plan: Patient has no wheezes at this time and she does not feel like she is having an asthma exacerbation. Patient is currently on her home dose of Solu-Cortef 30 mg p.o. b.i.d. for her Parth's. Continue albuterol, ipratropium nebulizers and her inhaled Advair at this time. Would continue patient's home medical regimen on discharge. Spoke with Yulia Zhong, will sign off, call with additional questions. History of Present Illness History of Present Illness Consult date: 02/06/21 Requesting physician: Yulia Zhong PA-C Reason for consult: pneumonia Chief complaint: pneumonia/covid pui Narrative: This is a new pulmonary consult for pneumonia in a patient with asthma. Patient is a 60-year-old woman with a history of asthma, Parth's disease, focal cord dysfunction with spasm who presented on 02/04 with worsening shortness of breath. Patient denied any fever no change in her green phlegm no hemoptysis and was found to have a pneumonia and started on ceftriaxone and azithromycin. patient's sputum has grown out pneumococcal pneumonia on 02/05. Patient has been treated with bronchodilators and today she tells me that she has 50% back to normal. Patient has vocal cord dysfunction that was diagnosed by an ENT and she is to be seen speech therapy and controls her symptoms with neck stretches and slowing her speech down and relaxing her neck muscles. Asthma is kin treated by Dr. Palacio on as an outpatient she states that she is on 2 inhalers, Flonase, Singulair, Tasha and Mucinex. Patient was referred to [facility] automotive engineer Ezequiel yanez and the patient states that she did not qualify for specific treatment. I asked the patient if this was a biologic and she did not know. Patient's typical irritants are pollen, tobacco smoke, wood burning stenosis, and perfumes. Patient has never been hospitalized for asthma in the past. She last had a an exacerbation approximately 4 weeks ago. Review of Systems Review of Systems: All systems reviewed & are unremarkable except as noted in HPI and below Eyes: Eyes: Reports no additional eye complaints ENT: Reports system reviewed and no additional complaints, except as documented and Reports sinus pressure Cardiovascular: Cardiovascular: Reports no additional cardiovascular complaints Respiratory: Respiratory: Reports no additional respiratory complaints Gastrointestinal: Gastrointestinal: Reports no additional gastrointestinal compla
[2021-02-06] MEDS: clonazePAM (*CRX) 0.5 MG TABLET 2 MG PO (20:37)
[2021-02-06 22:57] LABS: Pneumococcal Antigen Urine Not Detected (Not Detected)
[2021-02-07] VITALS (9 sets, daily range): BP systolic 105–150; BP diastolic 44–79; PULSE 82–100; RESP 20–24; TEMP 36.6–36.9; O2SAT 93–96
[2021-02-07] MEDS: ALBUTEROL SULFATE NEB 2.5 MG/0.5 ML INH 5 MG INHALATION ×4 (01:46→19:49)
[2021-02-07] MEDS: IPRATROPIUM BR 0.02% INH SOLN 0.5 MG/2.5 ML VIAL INHALATION ×4 (01:46→19:49)
[2021-02-07 06:26] LABS: Basophils Percent Auto 0.4 % (0.2-1.2); Eosinophils Percent Auto 0.2 % (0-4.4); Hematocrit 38.1 % (37.0-47.0); Hemoglobin 12.1 g/dL (12.0-15.0); Immature Granulocyte Absolute 0.16 K/mm3 (0.00-0.031); Immature Granulocyte Percent A 1.5 % (0-0.5); Lymphocytes Absolute Auto 1.47 K/mm3 (0.9-3.2); Lymphocytes Percent Auto 13.8 % (18.3-44.2); Mean Corpuscular HGB Conc 31.8 g/dl (32-36); Mean Corpuscular Hemoglobin 27.2 pg (26-34); Mean Corpuscular Volume 85.6 fl (80-100); Mean Platelet Volume 10.1 fl (7.4-10.4); Monocytes Absolute Auto 0.6 K/mm3 (0.1-0.6); Monocytes Percent Auto 5.9 % (2.6-8.5); Neutrophils Absolute Auto 8.3 K/mm3 (1.3-6.7); Neutrophils Percent Auto 78.2 % (45.5-73.1); Platelet Count Result 288 k/mm3 (150-375); Red Blood Count 4.45 M/mm3 (4.2-5.4); Red Cell Distribution Width 14.7 % (11.5-14.5); White Blood Count 10.7 K/mm3 (4.5-10.0)
[2021-02-07 06:33] LABS: Alanine Aminotransferase 68 U/L (4-35); Albumin Level 3.4 g/dL (3.5-5.1); Alkaline Phosphatase 112 U/L (38-126); Anion Gap 3 mmol/L (8-16); Aspartate Amino Transferase 37 U/L (14-36); Bilirubin,Total 0.2 mg/dL (0.2-1.3); Blood Urea Nitrogen 13 mg/dL (7-17); Calcium 8.9 mg/dL (8.4-10.2); Carbon Dioxide 33 mmol/L (22-30); Chloride 104 mmol/L (98-107); Estimated CRCL calculation 96 ml/min; Estimated Glomerular Filt Rate > 60; Glucose 119 mg/dL (65-105); Magnesium 2.3 mg/dL (1.6-2.3); Potassium 3.8 mmol/L (3.4-5.0); Sodium 140 mmol/L (137-145)
[2021-02-07] MEDS: FLUTICASONE/SALMETEROL 230-21 MCG INHALER 1 PUFF 2 PUFF INHALATION ×2 (07:55→19:50)
[2021-02-07] MEDS: HYDROcodone/acetaminophen (*CRX) 5-325 MG TABLET 1 TAB PO ×2 (08:15→17:10)
[2021-02-07] MEDS: ENOXAPARIN 40 MG/0.4 ML SYRINGE SUB-Q (08:16)
[2021-02-07] MEDS: HYDROCORTISONE 10 MG TABLET 30 MG PO ×2 (08:17→17:02)
[2021-02-07] MEDS: ISOSORBIDE MONONITRATE 30 MG TAB.ER.24H PO (08:17)
[2021-02-07] MEDS: FLUTICASONE PROPIONATE 0.05% NA SPR 16 GM BTL (*BKC) 2 SPRAY NASAL (08:17)
[2021-02-07] MEDS: CYCLOBENZAPRINE HCL 10 MG TABLET PO ×2 (08:49→21:08)
[2021-02-07 10:25] LABS: Legionella pneumophila Ag Ur Not Detected (Not Detected)
--- NOTE | 2021-02-07 16:05 | P.PNIM_ITS ---
Progress Note: A&P Assessment and Plan (1) Bilateral pneumonia: Qualifiers: Pneumonia type: due to unspecified organism Lung location: unspecified part of lung Qualified Code(s): J18.9 - Pneumonia, unspecified organism Code(s): J18.9 - Pneumonia, unspecified organism Status: Acute Assessment and Plan: * Suspected bacterial pneumonia; COVID negative by PCR. She had COVID-19 infection in Nov 2020. * Sputum culture has isolated Strep pneumo. Legionella and pneumococcal urine antigens are pending. * Continue azithromycin and Rocephin (day 4). * Continue nebulized bronchodilator therapy with duo nebs, incentive spirometry as she can tolerate. * With pleuritic chest pain - CTA shows pneumonia without evidence of PE. Suspect her pleuritic pain is related to pneumonia itself. (2) Acute respiratory failure with hypoxia: Code(s): J96.01 - Acute respiratory failure with hypoxia Status: Acute Assessment and Plan: * Secondary to underlying pneumonia. Also with chronic asthma. * Wean oxygen as tolerated to keep O2 saturations > 90%. Home O2 eval prior to discharge. (3) Sepsis: Qualifiers: Sepsis type: sepsis due to unspecified organism Sepsis acute organ dysfunction status: without acute organ dysfunction Qualified Code(s): A41.9 - Sepsis, unspecified organism Code(s): A41.9 - Sepsis, unspecified organism Status: Acute Assessment and Plan: * Present on admission supported by fever, tachycardia, tachypnea, and leukoc ytosis. Suspected source is pneumococcal pneumonia. UA is clear. * Blood cultures pending with no growth to date. Lactic acid within normal limits. * Continue antibiotics as above. Monitor leukocytosis with daily labs, improved today. Monitor vital signs and urine output. (4) Asthma: Qualifiers: Asthma severity: unspecified severity Asthma persistence: unspecified Asthma complication type: unspecified Qualified Code(s): J45.909 - Unspecified asthma, uncomplicated Code(s): J45.909 - Unspecified asthma, uncomplicated Status: Chronic Assessment and Plan: * No acute bronchospasm at present. * Continue bronchodilators and home Advair. Appreciate pulmonology input. She follows with an asthma/autism motor specialist Dr Aj Palacio. 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 * Continue her Cortef. Her golf cart maker is Dr Jill Polanco. (6) Vocal cord dysfunction: Code(s): J38.3 - Other diseases of vocal cords Status: Chronic Assessment and Plan: * Patient describes she has had vocal cord spasms on and off for years. She is having more spasms here in the hospital while she is ill. She describes the incentive spirometry brought on a significant spasm that left her very short of breath. * No stridor. Airway is protected at present. XR of neck is unremarkable without evidence of edema. Subjective Date/time seen: 02/07/21 1530 Interval history: Ms. Gabriel is a 60yo F admitted with acute respiratory failure and pneumonia. She feels a little improved today. Shortness of breath and pleuritic pain a little better. Ongoing productive cough. Still having vocal cord spasms on and off. Tolerat
--- NOTE | 2021-02-07 16:05 | PM.IMPN ---
Progress Note: A&P Assessment and Plan (1) Bilateral pneumonia: Qualifiers: Pneumonia type: due to unspecified organism Lung location: unspecified part of lung Qualified Code(s): J18.9 - Pneumonia, unspecified organism Code(s): J18.9 - Pneumonia, unspecified organism Status: Acute Assessment and Plan: Suspected bacterial pneumonia; COVID negative by PCR. She had COVID-19 infection in Nov 2020. Sputum culture has isolated Strep pneumo. Legionella and pneumococcal urine antigens are pending. Continue azithromycin and Rocephin (day 4). Continue nebulized bronchodilator therapy with duo nebs, incentive spirometry as she can tolerate. With pleuritic chest pain - CTA shows pneumonia without evidence of PE. Suspect her pleuritic pain is related to pneumonia itself. (2) Acute respiratory failure with hypoxia: Code(s): J96.01 - Acute respiratory failure with hypoxia Status: Acute Assessment and Plan: Secondary to underlying pneumonia. Also with chronic asthma. Wean oxygen as tolerated to keep O2 saturations > 90%. Home O2 eval prior to discharge. (3) Sepsis: Qualifiers: Sepsis type: sepsis due to unspecified organism Sepsis acute organ dysfunction status: without acute organ dysfunction Qualified Code(s): A41.9 - Sepsis, unspecified organism Code(s): A41.9 - Sepsis, unspecified organism Status: Acute Assessment and Plan: Present on admission supported by fever, tachycardia, tachypnea, and leukocytosis. Suspected source is pneumococcal pneumonia. UA is clear. Blood cultures pending with no growth to date. Lactic acid within normal limits. Continue antibiotics as above. Monitor leukocytosis with daily labs, improved today. Monitor vital signs and urine output. (4) Asthma: Qualifiers: Asthma severity: unspecified severity Asthma persistence: unspecified Asthma complication type: unspecified Qualified Code(s): J45.909 - Unspecified asthma, uncomplicated Code(s): J45.909 - Unspecified asthma, uncomplicated Status: Chronic Assessment and Plan: No acute bronchospasm at present. Continue bronchodilators and home Advair. Appreciate pulmonology input. She follows with an asthma/learning operations specialist Dr Aj Palacio. 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 Continue her Cortef. Her impregnating machine operator is Dr Jill Polanco. (6) Vocal cord dysfunction: Code(s): J38.3 - Other diseases of vocal cords Status: Chronic Assessment and Plan: Patient describes she has had vocal cord spasms on and off for years. She is having more spasms here in the hospital while she is ill. She describes the incentive spirometry brought on a significant spasm that left her very short of breath. No stridor. Airway is protected at present. XR of neck is unremarkable without evidence of edema. Subjective Date/time seen: 02/07/21 1530 Interval history: Ms. Gabriel is a 60yo F admitted with acute respiratory failure and pneumonia. She feels a little improved today. Shortness of breath and pleuritic pain a little better. Ongoing productive cough. Still having vocal cord spasms on and off. Tolerating meals well without nausea or vomiting. Review of Systems Review of Systems: All systems reviewed & are unremarkable except as noted in HPI and below Exam Narrative: Exam Narrative: General: Female resting comfortably sitting up in bed in no acute distress. HEENT: Normocephalic, EOMI, oral mucosa moist. Neck: Supple. No stridor. Respiratory: Respirati
[2021-02-07] MEDS: ACETAMINOPHEN 325 MG TABLET 650 MG PO (21:06)
[2021-02-07] MEDS: clonazePAM (*CRX) 0.5 MG TABLET 2 MG PO (21:08)
[2021-02-08] VITALS (13 sets, daily range): BP systolic 119–126; BP diastolic 62–71; PULSE 79–101; RESP 18–24; TEMP 36.6–37.1; O2SAT 93–98
[2021-02-08] MEDS: ALBUTEROL SULFATE NEB 2.5 MG/0.5 ML INH 5 MG INHALATION ×4 (02:02→20:48)
[2021-02-08] MEDS: IPRATROPIUM BR 0.02% INH SOLN 0.5 MG/2.5 ML VIAL INHALATION ×4 (02:02→20:48)
[2021-02-08 06:03] LABS: Basophils Absolute Auto 0.1 K/mm3 (0.0-0.1); Basophils Percent Auto 0.6 % (0.2-1.2); Eosinophils Percent Auto 0.2 % (0-4.4); Hematocrit 39.3 % (37.0-47.0); Hemoglobin 12.6 g/dL (12.0-15.0); Immature Granulocyte Percent A 4.4 % (0-0.5); Lymphocytes Absolute Auto 1.25 K/mm3 (0.9-3.2); Lymphocytes Percent Auto 13.8 % (18.3-44.2); Mean Corpuscular HGB Conc 32.1 g/dl (32-36); Mean Corpuscular Hemoglobin 27.9 pg (26-34); Mean Corpuscular Volume 87.1 fl (80-100); Mean Platelet Volume 9.7 fl (7.4-10.4); Monocytes Absolute Auto 0.8 K/mm3 (0.1-0.6); Neutrophils Absolute Auto 6.5 K/mm3 (1.3-6.7); Platelet Count Result 279 k/mm3 (150-375); Red Blood Count 4.51 M/mm3 (4.2-5.4); Red Cell Distribution Width 14.9 % (11.5-14.5)
[2021-02-08 06:14] LABS: Alanine Aminotransferase 64 U/L (4-35); Albumin Level 3.3 g/dL (3.5-5.1); Alkaline Phosphatase 143 U/L (38-126); Anion Gap 3 mmol/L (8-16); Aspartate Amino Transferase 44 U/L (14-36); Bilirubin,Total 0.3 mg/dL (0.2-1.3); Blood Urea Nitrogen 15 mg/dL (7-17); Calcium 9.1 mg/dL (8.4-10.2); Carbon Dioxide 33 mmol/L (22-30); Chloride 104 mmol/L (98-107); Estimated CRCL calculation 83 ml/min; Estimated Glomerular Filt Rate > 60; Glucose 119 mg/dL (65-105); Magnesium 2.3 mg/dL (1.6-2.3); Sodium 140 mmol/L (137-145)
[2021-02-08] MEDS: FLUTICASONE/SALMETEROL 230-21 MCG INHALER 1 PUFF 2 PUFF INHALATION ×2 (07:56→20:49)
[2021-02-08] MEDS: HYDROCORTISONE 10 MG TABLET 30 MG PO ×2 (08:52→17:14)
[2021-02-08] MEDS: ENOXAPARIN 40 MG/0.4 ML SYRINGE SUB-Q (08:53)
[2021-02-08] MEDS: ISOSORBIDE MONONITRATE 30 MG TAB.ER.24H PO (08:53)
[2021-02-08] MEDS: FLUTICASONE PROPIONATE 0.05% NA SPR 16 GM BTL (*BKC) 2 SPRAY NASAL (08:53)
[2021-02-08] MEDS: HYDROcodone/acetaminophen (*CRX) 5-325 MG TABLET 1 TAB PO ×2 (10:36→21:13)
--- NOTE | 2021-02-08 12:23 | P.PNIM_ITS ---
Progress Note: A&P Assessment and Plan (1) Bilateral pneumonia: Qualifiers: Pneumonia type: due to unspecified organism Lung location: unspecified part of lung Qualified Code(s): J18.9 - Pneumonia, unspecified organism Code(s): J18.9 - Pneumonia, unspecified organism Status: Acute Assessment and Plan: * Suspected bacterial pneumonia; COVID negative by PCR. She had COVID-19 infection in Nov 2020. * Sputum culture has isolated Strep pneumo. Legionella and pneumococcal urine antigens are not detected. * She received 4 days of IV azithromycin and rocephin. Sputum culture sensitivity report shows possible resistance to rocephin, switch to IV levaquin today (day 1). * Continue nebulized bronchodilator therapy with duo nebs, incentive spirometry as she can tolerate. * With pleuritic chest pain, now improved - CTA shows pneumonia without evidence of PE. Suspect her pleuritic pain was related to pneumonia itself. (2) Acute respiratory failure with hypoxia: Code(s): J96.01 - Acute respiratory failure with hypoxia Status: Acute Assessment and Plan: * Secondary to underlying pneumonia. Also with chronic asthma. * Wean oxygen as tolerated to keep O2 saturations > 90%. Home O2 eval prior to discharge. (3) Sepsis: Qualifiers: Sepsis type: sepsis due to unspecified organism Sepsis acute organ dys function status: without acute organ dysfunction Qualified Code(s): A41.9 - Sepsis, unspecified organism Code(s): A41.9 - Sepsis, unspecified organism Status: Acute Assessment and Plan: * Present on admission supported by fever, tachycardia, tachypnea, and leukocytosis. Suspected source is pneumococcal pneumonia. UA is clear. * Blood cultures pending with no growth to date. Lactic acid within normal limits. * Continue antibiotics as above. Leukocytosis resolved today. Monitor vital signs and urine output. (4) Asthma: Qualifiers: Asthma severity: unspecified severity Asthma persistence: unspecified Asthma complication type: unspecified Qualified Code(s): J45.909 - Unspecified asthma, uncomplicated Code(s): J45.909 - Unspecified asthma, uncomplicated Status: Chronic Assessment and Plan: * No acute bronchospasm at present. * Continue bronchodilators and home Advair. Appreciate pulmonology input. She follows with an asthma/marketing analytics specialist Dr Aj Palacio. 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 * Continue her Cortef. Her inspector metal can is Dr Jill Polanco. (6) Vocal cord dysfunction: Code(s): J38.3 - Other diseases of vocal cords Status: Chronic Assessment and Plan: * Patient describes she has had vocal cord spasms on and off for years. She is having more spasms here in the hospital while she is ill but improving. She describes the incentive spirometry brought on a significant spasm that left her very short of breath. * No stridor. Airway is protected at present. XR of neck is unremarkable without evidence of edema. Subjective Date/time seen: 02/08/21 1130 Interval history: Ms. Gabriel is a 60yo F admitted with acute respiratory failure and pneumonia. Overall she feels a bit better than wh
--- NOTE | 2021-02-08 12:23 | PM.IMPN ---
Progress Note: A&P Assessment and Plan (1) Bilateral pneumonia: Qualifiers: Pneumonia type: due to unspecified organism Lung location: unspecified part of lung Qualified Code(s): J18.9 - Pneumonia, unspecified organism Code(s): J18.9 - Pneumonia, unspecified organism Status: Acute Assessment and Plan: Suspected bacterial pneumonia; COVID negative by PCR. She had COVID-19 infection in Nov 2020. Sputum culture has isolated Strep pneumo. Legionella and pneumococcal urine antigens are not detected. She received 4 days of IV azithromycin and rocephin. Sputum culture sensitivity report shows possible resistance to rocephin, switch to IV levaquin today (day 1). Continue nebulized bronchodilator therapy with duo nebs, incentive spirometry as she can tolerate. With pleuritic chest pain, now improved - CTA shows pneumonia without evidence of PE. Suspect her pleuritic pain was related to pneumonia itself. (2) Acute respiratory failure with hypoxia: Code(s): J96.01 - Acute respiratory failure with hypoxia Status: Acute Assessment and Plan: Secondary to underlying pneumonia. Also with chronic asthma. Wean oxygen as tolerated to keep O2 saturations > 90%. Home O2 eval prior to discharge. (3) Sepsis: Qualifiers: Sepsis type: sepsis due to unspecified organism Sepsis acute organ dysfunction status: without acute organ dysfunction Qualified Code(s): A41.9 - Sepsis, unspecified organism Code(s): A41.9 - Sepsis, unspecified organism Status: Acute Assessment and Plan: Present on admission supported by fever, tachycardia, tachypnea, and leukocytosis. Suspected source is pneumococcal pneumonia. UA is clear. Blood cultures pending with no growth to date. Lactic acid within normal limits. Continue antibiotics as above. Leukocytosis resolved today. Monitor vital signs and urine output. (4) Asthma: Qualifiers: Asthma severity: unspecified severity Asthma persistence: unspecified Asthma complication type: unspecified Qualified Code(s): J45.909 - Unspecified asthma, uncomplicated Code(s): J45.909 - Unspecified asthma, uncomplicated Status: Chronic Assessment and Plan: No acute bronchospasm at present. Continue bronchodilators and home Advair. Appreciate pulmonology input. She follows with an asthma/change control specialist Dr Aj Palacio. 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 Continue her Cortef. Her supervisor research shop is Dr Jlil Polanco. (6) Vocal cord dysfunction: Code(s): J38.3 - Other diseases of vocal cords Status: Chronic Assessment and Plan: Patient describes she has had vocal cord spasms on and off for years. She is having more spasms here in the hospital while she is ill but improving. She describes the incentive spirometry brought on a significant spasm that left her very short of breath. No stridor. Airway is protected at present. XR of neck is unremarkable without evidence of edema. Subjective Date/time seen: 02/08/21 1130 Interval history: Ms. Gabriel is a 60yo F admitted with acute respiratory failure and pneumonia. Overall she feels a bit better than when she came in. She is short of breath with activity but her pleuritic pain is much better today. Ongoing wet cough but says she is not able to cough anything out. Vocal cord spasms have improved. Tolerating meals well without nausea or vomiting. Review of Systems Review of Systems: All systems reviewed & are unremarkable except as noted in HPI and below Exam Narrat
[2021-02-08] MEDS: CYCLOBENZAPRINE HCL 10 MG TABLET PO (21:07)
[2021-02-08] MEDS: clonazePAM (*CRX) 0.5 MG TABLET 2 MG PO (21:07)
[2021-02-08] MEDS: guaiFENesin 12 HR 600 MG TABCR PO (21:07)
[2021-02-09] VITALS (14 sets, daily range): BP systolic 107–124; BP diastolic 45–67; PULSE 81–110; RESP 18–20; TEMP 36.2–36.4; O2SAT 91–99
[2021-02-09] MEDS: ALBUTEROL SULFATE NEB 2.5 MG/0.5 ML INH 5 MG INHALATION ×4 (02:31→20:21)
[2021-02-09] MEDS: IPRATROPIUM BR 0.02% INH SOLN 0.5 MG/2.5 ML VIAL INHALATION ×4 (02:32→20:21)
[2021-02-09] MEDS: FLUTICASONE/SALMETEROL 230-21 MCG INHALER 1 PUFF 2 PUFF INHALATION ×2 (08:05→20:22)
[2021-02-09] MEDS: HYDROcodone/acetaminophen (*CRX) 5-325 MG TABLET 1 TAB PO ×2 (08:37→20:44)
[2021-02-09] MEDS: guaiFENesin 12 HR 600 MG TABCR PO ×2 (08:38→20:32)
[2021-02-09] MEDS: HYDROCORTISONE 10 MG TABLET 30 MG PO ×2 (08:38→17:22)
[2021-02-09] MEDS: ENOXAPARIN 40 MG/0.4 ML SYRINGE SUB-Q (08:38)
[2021-02-09] MEDS: ISOSORBIDE MONONITRATE 30 MG TAB.ER.24H PO (08:38)
[2021-02-09] MEDS: FLUTICASONE PROPIONATE 0.05% NA SPR 16 GM BTL (*BKC) 2 SPRAY NASAL (08:39)
[2021-02-09] MEDS: diphenhydrAMINE HCl CAP 25 MG CAPSULE PO (09:57)
--- NOTE | 2021-02-09 12:55 | P.PNIM_ITS ---
Progress Note: A&P Assessment and Plan (1) Bilateral pneumonia: Qualifiers: Lung location: unspecified part of lung Pneumonia type: due to unspecified organism Qualified Code(s): J18.9 - Pneumonia, unspecified organism Code(s): J18.9 - Pneumonia, unspecified organism Status: Acute Assessment and Plan: * Suspected bacterial pneumonia; COVID negative by PCR. She had COVID-19 infection in Nov 2020. * Sputum culture has isolated Strep pneumo. Legionella and pneumococcal urine antigens are not detected. * She received 4 days of IV azithromycin and rocephin. Sputum culture sensitivity report shows possible resistance to rocephin, switched to IV levaquin today (day 2). * Continue nebulized bronchodilator therapy with duo nebs, incentive spirometry as she can tolerate. * With pleuritic chest pain, now resolved - CTA shows pneumonia without evidence of PE. Suspect her pleuritic pain was related to pneumonia itself. (2) Acute respiratory failure with hypoxia: Code(s): J96.01 - Acute respiratory failure with hypoxia Status: Acute Assessment and Plan: * Secondary to underlying pneumonia. Also with chronic asthma. * Wean oxygen as tolerated to keep O2 saturations > 90%. Home O2 eval prior to discharge. (3) Sepsis: Qualifiers: Sepsis acute organ dysfunction status: without acute organ dysfunction Sepsis type: sepsis due to unspecified organism Qualified Code(s): A41.9 - Sepsis, unspecified organism Code(s): A41.9 - Sepsis, unspecified organism Status: Acute Assessment and Plan: * Present on admission supported by fever, tachycardia, tachypnea, and leukocytosis. Suspected source is pneumococcal pneumonia. UA was clear. * Blood cultures pending with no growth to date. Lactic acid within normal limits. * Continue antibiotics as above. Leukocytosis resolved. Monitor vital signs and urine output. (4) Asthma: Qualifiers: Asthma complication type: unspecified Asthma persistence: unspecified Asthma severity: unspecified severity Qualified Code(s): J45.909 - Unspecified asthma, uncomplicated Code(s): J45.909 - Unspecified asthma, uncomplicated Status: Chronic Assessment and Plan: * No acute bronchospasm at present. * Continue bronchodilators and home Advair. Appreciate pulmonology input. She follows with an asthma/solutions specialist Dr Aj Palacio. 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 * Continue her Cortef. Her application technician is Dr Jill Polanco. (6) Vocal cord dysfunction: Code(s): J38.3 - Other diseases of vocal cords Status: Chronic Assessment and Plan: * Patient describes she has had vocal cord spasms on and off for years. She is having more spasms here in the hospital while she is ill but improving. She describes the incentive spirometry brought on a significant spasm that left her very short of breath. * No stridor. Airway is protected at present. XR of neck is unremarkable without evidence of edema. Subjective Date/time seen: 02/09/21 1145 Interval history: Ms. Gabriel is a 60yo F admitted with acute respiratory failure and pneumonia. She is tearful and emotional this morning
--- NOTE | 2021-02-09 12:55 | PM.IMPN ---
Progress Note: A&P Assessment and Plan (1) Bilateral pneumonia: Qualifiers: Lung location: unspecified part of lung Pneumonia type: due to unspecified organism Qualified Code(s): J18.9 - Pneumonia, unspecified organism Code(s): J18.9 - Pneumonia, unspecified organism Status: Acute Assessment and Plan: Suspected bacterial pneumonia; COVID negative by PCR. She had COVID-19 infection in Nov 2020. Sputum culture has isolated Strep pneumo. Legionella and pneumococcal urine antigens are not detected. She received 4 days of IV azithromycin and rocephin. Sputum culture sensitivity report shows possible resistance to rocephin, switched to IV levaquin today (day 2). Continue nebulized bronchodilator therapy with duo nebs, incentive spirometry as she can tolerate. With pleuritic chest pain, now resolved - CTA shows pneumonia without evidence of PE. Suspect her pleuritic pain was related to pneumonia itself. (2) Acute respiratory failure with hypoxia: Code(s): J96.01 - Acute respiratory failure with hypoxia Status: Acute Assessment and Plan: Secondary to underlying pneumonia. Also with chronic asthma. Wean oxygen as tolerated to keep O2 saturations > 90%. Home O2 eval prior to discharge. (3) Sepsis: Qualifiers: Sepsis acute organ dysfunction status: without acute organ dysfunction Sepsis type: sepsis due to unspecified organism Qualified Code(s): A41.9 - Sepsis, unspecified organism Code(s): A41.9 - Sepsis, unspecified organism Status: Acute Assessment and Plan: Present on admission supported by fever, tachycardia, tachypnea, and leukocytosis. Suspected source is pneumococcal pneumonia. UA was clear. Blood cultures pending with no growth to date. Lactic acid within normal limits. Continue antibiotics as above. Leukocytosis resolved. Monitor vital signs and urine output. (4) Asthma: Qualifiers: Asthma complication type: unspecified Asthma persistence: unspecified Asthma severity: unspecified severity Qualified Code(s): J45.909 - Unspecified asthma, uncomplicated Code(s): J45.909 - Unspecified asthma, uncomplicated Status: Chronic Assessment and Plan: No acute bronchospasm at present. Continue bronchodilators and home Advair. Appreciate pulmonology input. She follows with an asthma/intensive care medicine specialist Dr Aj Palacio. 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 Continue her Cortef. Her executive producer promos is Dr Jill Polanco. (6) Vocal cord dysfunction: Code(s): J38.3 - Other diseases of vocal cords Status: Chronic Assessment and Plan: Patient describes she has had vocal cord spasms on and off for years. She is having more spasms here in the hospital while she is ill but improving. She describes the incentive spirometry brought on a significant spasm that left her very short of breath. No stridor. Airway is protected at present. XR of neck is unremarkable without evidence of edema. Subjective Date/time seen: 02/09/21 1145 Interval history: Ms. Gabriel is a 60yo F admitted with acute respiratory failure and pneumonia. She is tearful and emotional this morning. She reports shortness of breath with minimal activity today. Denies chest pain. Able to cough some mucus up today. Tolerating meals well without nausea, vomiting, or abdominal pain. Review of Systems Review of Systems: All systems reviewed & are unremarkable except as noted in HPI and below Exam Narrative: Exam Narrative: General: Female resting comfortably s
[2021-02-09] MEDS: CYCLOBENZAPRINE HCL 10 MG TABLET PO (14:05)
[2021-02-09] MEDS: DULoxetine HCL 60 MG CAPSULE.DR PO (15:28)
[2021-02-09] MEDS: LORazepam (*CRX) 0.5 MG TABLET PO (17:25)
[2021-02-09] MEDS: clonazePAM (*CRX) 0.5 MG TABLET 2 MG PO (20:44)
[2021-02-10] VITALS (12 sets, daily range): BP systolic 106–109; BP diastolic 50–52; PULSE 77–98; RESP 18–20; TEMP 36.2–36.7; O2SAT 89–98
[2021-02-10] MEDS: IPRATROPIUM BR 0.02% INH SOLN 0.5 MG/2.5 ML VIAL INHALATION ×3 (02:23→13:34)
[2021-02-10] MEDS: ALBUTEROL SULFATE NEB 2.5 MG/0.5 ML INH 5 MG INHALATION ×3 (02:23→13:33)
[2021-02-10 06:11] LABS: Basophils Absolute Auto 0.1 K/mm3 (0.0-0.1); Basophils Percent Auto 0.8 % (0.2-1.2); Eosinophils Absolute Auto 0.1 K/mm3 (0-0.3); Eosinophils Percent Auto 0.5 % (0-4.4); Hematocrit 40.7 % (37.0-47.0); Hemoglobin 13.1 g/dL (12.0-15.0); Immature Granulocyte Absolute 0.51 K/mm3 (0.00-0.031); Immature Granulocyte Percent A 5.3 % (0-0.5); Lymphocytes Absolute Auto 2.03 K/mm3 (0.9-3.2); Lymphocytes Percent Auto 21.1 % (18.3-44.2); Mean Corpuscular HGB Conc 32.2 g/dl (32-36); Mean Corpuscular Hemoglobin 27.6 pg (26-34); Mean Corpuscular Volume 85.7 fl (80-100); Mean Platelet Volume 9.6 fl (7.4-10.4); Monocytes Absolute Auto 0.9 K/mm3 (0.1-0.6); Monocytes Percent Auto 8.8 % (2.6-8.5); Neutrophils Absolute Auto 6.1 K/mm3 (1.3-6.7); Neutrophils Percent Auto 63.5 % (45.5-73.1); Nucleated Red Blood Cells Perc 0.3 % (0.0-0.2); Platelet Count Result 338 k/mm3 (150-375); Red Blood Count 4.75 M/mm3 (4.2-5.4); White Blood Count 9.6 K/mm3 (4.5-10.0)
[2021-02-10 06:36] LABS: Alanine Aminotransferase 87 U/L (4-35); Albumin Level 3.6 g/dL (3.5-5.1); Alkaline Phosphatase 201 U/L (38-126); Anion Gap 3 mmol/L (8-16); Aspartate Amino Transferase 69 U/L (14-36); Bilirubin,Total 0.3 mg/dL (0.2-1.3); Blood Urea Nitrogen 20 mg/dL (7-17); Calcium 9.3 mg/dL (8.4-10.2); Carbon Dioxide 31 mmol/L (22-30); Chloride 104 mmol/L (98-107); Estimated CRCL calculation 83 ml/min; Estimated Glomerular Filt Rate > 60; Glucose 98 mg/dL (65-105); Magnesium 2.4 mg/dL (1.6-2.3); Potassium 3.8 mmol/L (3.4-5.0); Sodium 138 mmol/L (137-145)
[2021-02-10 06:49] LABS: Anisocytosis 1+ (NORMAL); Platelet Estimate Adequate (Adequate)
[2021-02-10 06:50] LABS: Ovalocytes 1+ (NORMAL)
[2021-02-10] MEDS: FLUTICASONE/SALMETEROL 230-21 MCG INHALER 1 PUFF 2 PUFF INHALATION (07:54)
[2021-02-10] MEDS: guaiFENesin 12 HR 600 MG TABCR PO (08:23)
[2021-02-10] MEDS: ENOXAPARIN 40 MG/0.4 ML SYRINGE SUB-Q (08:23)
[2021-02-10] MEDS: DULoxetine HCL 60 MG CAPSULE.DR PO (08:23)
[2021-02-10] MEDS: HYDROCORTISONE 10 MG TABLET 30 MG PO (08:23)
[2021-02-10] MEDS: FLUTICASONE PROPIONATE 0.05% NA SPR 16 GM BTL (*BKC) 2 SPRAY NASAL (08:23)
[2021-02-10] MEDS: HYDROcodone/acetaminophen (*CRX) 5-325 MG TABLET 1 TAB PO (08:24)
[2021-02-10] MEDS: ISOSORBIDE MONONITRATE 30 MG TAB.ER.24H PO (08:24)
--- NOTE | 2021-02-10 10:41 | HOMEO2EVAL ---
Home Oxygen Evaluation RC: Home Oxygen (O2) Evaluation Start: 02/10/21 08:01 Freq: ONCE Status: Active Protocol: RPE Activity Type Activity Date Activity User E-Sign Co-Sign Detail Recorded Client Recorded Date Recorded By Document 02/10/21 10:27 [facility] [email or web address] 02/10/21 10:41 TK Document 02/10/21 10:28 TK [email or web address] 02/10/21 10:41 [facility] Document 02/10/21 10:40 [facility] [email or web address] 02/10/21 10:41 [facility] 02/10/21 02/10/21 02/10/21 10:27 10:28 10:40 Home O2 Evaluation Test Phase Resting Exercise Resting Oxygen Delivery Room Air Room Air Room Air Fraction of Inspired Oxygen (%) 21 Pulse Oximetry (90-100 %) 96 89 L 98 Pulse Rate (60-100 beats/min) 95 98 97 Activity Tolerance Good Good Rating of Perceived Dyspnea (PD) +2 Mild, Some Difficulty, Noticeable to the Observer Rate of Perceived Exertion (PE) 11 Fairly light Ambulation Distance (feet) 210 Home Oxygen Evaluation Comments Pt does not qualify for home oxygen. Treatment Charges O2 Evaluation - Inpatient
--- NOTE | 2021-02-10 12:49 | PM.DS ---
DS: Admitting Diagnosis Admitting Diagnosis Admitting Diagnosis: Pneumonia DS: Discharge Diagnosis Discharge Diagnosis (1) Bilateral pneumonia: Qualifiers: Pneumonia type: due to unspecified organism Lung location: unspecified part of lung Qualified Code(s): J18.9 - Pneumonia, unspecified organism Code(s): J18.9 - Pneumonia, unspecified organism Status: Acute Assessment and Plan: Date of Admission 02/04/21 Date of Discharge 02/10/21 Ms. 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 She was COVID negative by PCR during this admission, had COVID-19 infection November 2020. Chest x-ray demonstrated patchy bilateral airspace opacities left > right concerning for bilateral pneumonia. She was treated with 4 days of IV azithromycin and Rocephin which was switched to IV Levaquin based on sputum culture that grew Streptococcus showing possible resistance to Rocephin. She was treated with 3 days of IV Levaquin prior to discharge and discharged with oral Levaquin to complete the course. She was hypoxic requiring up to 4 liters/minute nasal cannula. Clinically she improved and was tolerating room air prior to discharge. She was treated with nebulized bronchodilator therapy with duo nebs, incentive spirometry. She was additionally evaluated by pulmonology, Dr. Galaviz, recommended continuing the current management. 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 Polanco. Overall she showed clinical improvement and she was hemodynamically stable for discharge on 02/10/2021 with instructions to follow-up with her PCP as well as her allergy/asthma specialist. Suspected bacterial pneumonia; COVID negative by PCR. She had COVID-19 infection in Nov 2020. Sputum culture has isolated Strep pneumo. Legionella and pneumococcal urine antigens are not detected. She received 4 days of IV azithromycin and rocephin. Sputum culture sensitivity report shows possible resistance to rocephin, switched to IV levaquin. She received 3 doses of IV Levaquin before discharging on oral Levaquin to complete the course. Treated with nebulized bronchodilator therapy with duo nebs, incentive spirometry as she can tolerate. With pleuritic chest pain, now resolved - CTA shows pneumonia without evidence of PE. Suspect her pleuritic pain was related to pneumonia itself. (2) Acute respiratory failure with hypoxia: Code(s): J96.01 - Acute respiratory failure with hypoxia Status: Acute Assessment and Plan: Secondary to underlying pneumonia. Also with chronic asthma. Resolved. Did not qualify for home oxygen set up and was tolerating room air at discharge. (3) Sepsis: Qualifiers: Sepsis type: sepsis due to unspecified organism Sepsis acute organ dysfunction status: without acute organ dysfunction Qualified Code(s): A41.9 - Sepsis, unspecified organism Code(s): A41.9 - Sepsis, unspecified organism Status: Acute Assessment and Plan: Present on admission supported by fever, tachycardia, tachypnea, and leukocytosis. Suspected source is pneumococcal pneumonia. UA was clear. Blood cultures negative. Lactic acid within normal limits. Continue antibiotics as above. Leukocytosis resolved. (4) Asthma: Qualifiers: Asthma severity: unspecified severity Asthma persistence: unspecified Asthma complication type: unspecified Qualified Code(s): J45.909 - Unspecified asthma, uncomplicated Code(s): J45.909 - Unspecified asthma, uncomplicated Status: Chronic Assessment and Plan: No acute bronchospasm at present. Continue bronch
== END 2021-02-10 15:20 | disposition home or self-care (01) | DRG 871 ==
LOC: ANHED 08:39 → ANH3MEDSUR 11:02
PROVIDERS: Physician Assistant; Admitting Provider Internal Medicine; Emergency Provider Emergency Medicine; Visit Provider Hospitalist
DX: A41.9 Sepsis, unspecified organism (principal); J13 Pneumonia due to Streptococcus pneumoniae; J96.01 Acute respiratory failure with hypoxia; E27.1 Primary adrenocortical insufficiency; Z20.822 Contact with and (suspected) exposure to COVID-19; J45.909 Unspecified asthma, uncomplicated; J38.3 Other diseases of vocal cords; M79.7 Fibromyalgia; Z90.49 Acquired absence of other specified parts of digestive tract; Z90.710 Acquired absence of both cervix and uterus
CPT/HCPCS: 36415; 70360; 71045; 71046; 71275; 80048; 80053; 81003; 82728; 83605; 83615; 83735; 83880; 84484; 85025; 85027; 85610; 85730; 86140; 87040; 87070; 87077; 87186; 87205; 87449; 87899; 92610; 93005; 93970; 94618; 94640; 96365; 96372; 96375; 99285; A9270; C9803; G0378; J0456; J0696; J1650; J1956; J2405; J7120; Q9967; U0003; U0005

== ENCOUNTER → 2021-08-19 14:35 | Outpatient (CLI) | payer BC, SELFPAY ==
--- NOTE | ~2021-08-19 | US_ITS ---
EXAMINATION: US thyroid DATE: 08/19/2021 16:27 INDICATION: Goiter. TECHNIQUE: Multiple ultrasound images of the thyroid were obtained. COMPARISON: None. FINDINGS: The right thyroid lobe measures 5.4 x 2.8 x 1.9 cm. The left thyroid lobe measures 4.2 x 1.5 x 1.4 c m. In the right thyroid lobe, there is a 2.7 cm predominantly solid, hypoechoic, [id number] nod ule with lobulated margin without echogenic foci (TI-RADS TR4). In the right thyroid lobe, there is a 7 mm solid, hypoechoic, [id number] nodule with lobulated margin without echogenic foci (TR4). IMPRESSION: 1. Multinodular goiter. The patient reports a history of a benign biopsy 10 years ago. Comparison wit h prior imaging is recommended to determine if biopsy of the 2.7 cm nodule is warranted. Reviewed, dictated and finalized at location A. IMPRESSION: 1. Multinodular goiter. The patient reports a history of a benign biopsy 10 yea rs ago. Comparison with prior imaging is recommended to determine if biopsy of the 2.7 cm nodule is warranted.
--- NOTE | ~2021-08-19 | MR_ITS ---
EXAMINATION: MR pituitary wo/w con DATE: 08/19/2021 16:10 INDICATION: Hypopituitarism. ACTH deficiency. TECHNIQUE: Magnetic resonance imaging (MRI) of the brain and brainstem was performed without and with 18 mL MultiHance intravenous contrast. Whole-brain sequences included sagittal T1-weighted FSE, axia l diffusion-weighted FS EPI, axial T2*-weighted GRE, axial T2-weighted FLAIR Propeller, and axial T2- weighted Propeller. Small [id number] sequences included sagittal and coronal T1-weighted FSE cente red at the pituitary. Postcontrast sequences included small [id number] coronal T1-weighted FSE in a time course and sagittal T1-weighted FSE and whole-brain axial T1-weighted FSE. Apparent diffusion coefficient (ADC) maps were created. COMPARISON: None. FINDINGS: The pituitary is normal in size with height of 5 mm. There are scattered areas of nonspecif ic increased T2-weighted signal intensity in the cerebral white matter. There is no intracranial hemo rrhage, acute infarction, or abnormal intracranial mass lesion. The ventricles are normal in size. Th ere are small mastoid effusions. The orbits are normal. The paranasal sinuses are clear. IMPRESSION: 1. Normal pituitary. 2. Moderate nonspecific cerebral white matter disease, which likely represents chronic small vessel i schemic disease. Reviewed, dictated and finalized at location A. IMPRESSION: 1. Normal pituitary. 2. Moderate nonspecific cerebral white matter disease, which likely represents chronic small vessel ischemic disease.
== END ==
PROVIDERS: PCP Family Medicine; Visit Provider Internal Medicine Endocrinology, Diabetes & Metabolism
DX: E23.0 Hypopituitarism (principal); E04.2 Nontoxic multinodular goiter; R90.82 White matter disease, unspecified
CPT/HCPCS: 70553; 76536; A9577

== ENCOUNTER → 2021-08-19 14:37 | Outpatient (CLI) | payer BC, SELFPAY ==
--- NOTE | ~2021-08-19 | XR_ITS ---
XR hip LT min 3V w AP pelvis 08/19/2021 16:39 Indication: Left hip Procedure: 3 views left hip Comparison: No prior studies for comparison. Findings: No fracture, subluxation or dislocation. Pelvic rings are intact. Sacral foramen are symmet buffy. No significant soft tissue abnormality. No foreign bodies. There is mild lower lumbar spondylosi s. Mild osteoarthritis of the hips. Impression: 1: Mild osteoarthritis of the hips. Reviewed, dictated and finalized at location B. Impression: 1: Mild osteoarthritis of the hips.
[2021-08-19 15:33] LABS: Estimated Glomerular Filt Rate > 60
== END ==
PROVIDERS: PCP Family Medicine; Visit Provider Nurse Practitioner Family
DX: M25.552 Pain in left hip (principal); M16.0 Bilateral primary osteoarthritis of hip
CPT/HCPCS: 73502

== ENCOUNTER 2021-08-26 22:37 | Observation (INO) | payer BC, SELFPAY ==
--- NOTE | ~2021-08-26 | XR_ITS ---
EXAMINATION: XR chest 2V EXAM DATE: 08/29/2021 08:43 INDICATION: Pneumonia F/U. TECHNIQUE: Frontal and lateral projections of the chest obtained and reviewed. Comparison is made to prior examination from 08/26/21. FINDINGS: There is improvement in left lower lobe airspace disease, now linear configuration consiste nt with atelectasis. Right upper lobe granuloma. The lungs are otherwise clear. There are no pleural effusions. The cardiomediastinal silhouette is within normal limits. There is no pneumothorax susp ected. The bones and soft tissues are unremarkable. There are cholecystectomy clips. IMPRESSION: Some residual linear left basilar opacity consistent with atelectasis. Reviewed, dictated and finalized at location B. IMPRESSION: Some residual linear left basilar opacity consistent with atelectas is.
--- NOTE | ~2021-08-26 | XR_ITS ---
XR chest 2V 08/26/2021 23:07 Indication: Shortness of breath and cough for 3 days. Procedure: 2 view chest Comparison: Comparison to multiple prior studies sequentially, with oldest reviewed study dated Rayshawn rison to multiple prior studies sequentially, with oldest reviewed study dated 02/17/2011. . Findings: There is left basilar airspace consolidation. Heart size is normal. Right lung clear. Calci fied nodule right apex, consistent with chronic granulomatous disease. Impression: 1: Left basilar airspace disease which may represent pneumonia, atelectasis and/or scarring. Reviewed, dictated and finalized at location A. Impression: 1: Left basilar airspace disease which may represent pneumonia, atelectasis and /or scarring.
[2021-08-26 22:40] VITALS: BP 135/72; PULSE 98; RESP 14; TEMP 36.5; O2SAT 92
--- NOTE | 2021-08-26 22:40 | ECG_ITS ---
Measurements Intervals Cullen Rate: 94 P: 48 CT: 144 QRS: 58 QRSD: 85 T: 36 QT: 349 QTc: 437 Interpretive Statements SINUS RHYTHM INCOMPLETE RIGHT BUNDLE BRANCH BLOCK BORDERLINE T WAVE ABNORMALITY- INFERIOR LEADS BASELINE ARTIFACT- I, II, AVR BORDERLINE ECG Electronically Signed On 08-26-2021 23:02:04 CDT by Carlos Peng D.O.
[2021-08-26 23:01] LABS: Basophils Absolute Auto 0.1 K/mm3 (0.0-0.1); Basophils Percent Auto 0.4 % (0.2-1.2); Eosinophils Absolute Auto 0.1 K/mm3 (0-0.3); Eosinophils Percent Auto 0.7 % (0-4.4); Hematocrit 42.3 % (37.0-47.0); Immature Granulocyte Absolute 0.07 K/mm3 (0.00-0.031); Immature Granulocyte Percent A 0.5 % (0-0.5); Lymphocytes Absolute Auto 1.58 K/mm3 (0.9-3.2); Lymphocytes Percent Auto 11.5 % (18.3-44.2); Mean Corpuscular HGB Conc 33.1 g/dl (32-36); Mean Corpuscular Hemoglobin 28.3 pg (26-34); Mean Corpuscular Volume 85.6 fl (80-100); Mean Platelet Volume 9.8 fl (7.4-10.4); Monocytes Absolute Auto 1.1 K/mm3 (0.1-0.6); Neutrophils Absolute Auto 10.8 K/mm3 (1.3-6.7); Neutrophils Percent Auto 78.9 % (45.5-73.1); Platelet Count Result 265 k/mm3 (150-375); Red Blood Count 4.94 M/mm3 (4.2-5.4); Red Cell Distribution Width 14.3 % (11.5-14.5); White Blood Count 13.7 K/mm3 (4.5-10.0)
[2021-08-26 23:27] LABS: Anion Gap 11 mmol/L (8-16); Blood Urea Nitrogen 11 mg/dL (7-17); Calcium 9.9 mg/dL (8.4-10.2); Carbon Dioxide 26 mmol/L (22-30); Chloride 102 mmol/L (98-107); Estimated CRCL calculation 80 ml/min; Estimated Glomerular Filt Rate > 60; Glucose 143 mg/dL (65-110); Potassium 3.7 mmol/L (3.4-5.0); Sodium 139 mmol/L (137-145)
[2021-08-26 23:43] VITALS: PULSE 85
[2021-08-26 23:44] VITALS: BP 114/64; PULSE 91; RESP 19; O2SAT 95
[2021-08-27] VITALS (19 sets, daily range): BP systolic 108–157; BP diastolic 54–69; PULSE 81–106; RESP 18–24; TEMP 35.9–36.5; O2SAT 91–95; BMI 37.7; BMI 35.1
[2021-08-27] MEDS: ALBUTEROL SULFATE (*SP) INHALER 2 PUFF INHALATION (00:14)
[2021-08-27] MEDS: methylPREDNISolone SOD SUCC 125 MG VIAL IV PUSH (00:22)
--- NOTE | 2021-08-27 01:24 | ED.GENADULT ---
HPI - General Adult General Chief complaint: Asthma Stated complaint: shortness of breath. Low O2 sats at home Time Seen by Provider: 08/26/21 23:56 History of Present Illness HPI narrative: Patient is a 61-year-old female presents emergency department with chief complaint of shortness of breath. Patient reports has had a cough for several days has had productive of green sputum reports that she has been getting more short of breath 2. Patient states that she has history of asthma and was treated with steroids several weeks ago patient was given a prescription today for steroids and has not been able to get that filled patient noticed that her blood oxygen levels on a pulse oximeter were in the 80s at home and decided to come to the emergency department for evaluation. The patient reports has been wheezing and felt short of breath as well. Related Data Home Medications Medication Instructions Recorded Confirmed albuterol sulfate [Ventolin HFA] 2 puff INHALATION QID PRN 09/13/19 08/07/21 fluticasone propionate [Allergy 2 spray INTRANASAL DAILY 09/13/19 08/07/21 Relief (fluticasone)] isosorbide mononitrate 30 mg PO DAILY 09/13/19 08/07/21 hydrocortisone [Cortef] 30 mg PO BID 09/14/19 08/07/21 duloxetine 60 mg PO QAM 02/09/21 08/07/21 clonazepam 1 mg tablet 1 mg PO QHS 08/07/21 08/07/21 cyclobenzaprine 10 mg tablet 10 mg PO TID 08/07/21 08/07/21 exenatide microspheres 2 mg/0.85 2 mg SUBCUT WEEKLY 08/07/21 08/07/21 mL subcutaneous auto-injector fludrocortisone 0.1 mg tablet 0.1 mg PO DAILY 08/07/21 08/07/21 fluticasone fur. 200 mcg-umeclid 1 inh INHALATION DAILY 08/07/21 08/07/21 62.5 mcg-vilant 25 mcg inhalat.powder hydrocodone 5 mg-acetaminophen 325 1 tablet PO Q8H PRN 08/07/21 08/07/21 mg tablet metoprolol tartrate 25 mg tablet 25 mg PO BID tablet 08/07/21 08/07/21 omeprazole 40 mg capsule,delayed 40 mg PO DAILY 08/07/21 08/07/21 release Allergies Allergy/AdvReac Type Severity Reaction Status Date / Time clams Allergy Unknown Verified 08/07/21 09:15 codeine Allergy Unknown Verified 08/07/21 09:15 horseradish Allergy Unknown Verified 08/07/21 09:15 indomethacin [From Indocin] Allergy Unknown Verified 08/07/21 09:15 Iodine and Iodide Containing Allergy Unknown Verified 08/07/21 09:15 Produc shellfish derived Allergy Unknown Verified 08/07/21 09:15 shrimp Allergy Unknown Verified 08/07/21 09:15 Review of Systems Review of Systems: A 10 system review of systems was completed on the patient and is negative except for what is stated in the HPI. Nursing and ancillary documentation was reviewed. [facility] Past Medical History Medical History [place] disease Asthma Coronary artery disease Per patient, she has mild non obstructing coronary artery disease noted on cardiac catheterization in 2013. She is reportedly taking Imdur for this. Degenerative disc disease Fibromyalgia Gastroesophageal reflux disease Vocal cord dysfunction Surgical History Surgical History History of cardiac catheterization (~2013) Per patient, mild nonobstructing disease. History of cervical spinal surgery History of section History of cholecystectomy History of hysterectomy Family History Family History Mother Heart disease Mother Heart disease Father Heart disease Social History Social History Social History: Surrogate decision maker: Donis Gabriel, . Code status: Full code. Smoking status: Never smoker Alcohol intake: never Substance use: never Additional living arrangements comments: The patient lives with her and their dogs in [place]. They have 2 children. Additional occupation/education comments: Unemployed. Gender identity
[2021-08-27] MEDS: IPRATROPIUM BR 0.02% INH SOLN 0.5 MG/2.5 ML VIAL INHALATION ×4 (01:34→19:22)
[2021-08-27] MEDS: ALBUTEROL SULFATE NEB 2.5 MG/0.5 ML INH 5 MG INHALATION ×4 (01:34→19:22)
--- NOTE | 2021-08-27 03:19 | ADMGEN ---
This patient, Liliana Gabriel, was admitted to 3 [facility] Surg Room 303-309. Patient/family oriented to hospital policies and general routines including ID bracelet, bed and alarms, visiting hours, pain management, procedures, bathroom and other care routines, personal items, smoking policy, room service/diet, and visiting hours. Information on how to activate the Rapid Response Team has been discussed. Patient/Family are encouraged to report perceived risks to care and to ask questions if they do not understand what they are told or what they should do.
[2021-08-27] MEDS: methylPREDNISolone SOD SUCC 125 MG VIAL 60 MG IV PUSH ×3 (06:48→21:58)
[2021-08-27] MEDS: PANTOPRAZOLE 40 MG TABLET PO ×2 (09:21→21:58)
[2021-08-27] MEDS: CYCLOBENZAPRINE HCL 10 MG TABLET PO ×3 (09:21→21:58)
[2021-08-27] MEDS: HYDROcodone/acetaminophen (*CRX) 5-325 MG TABLET 1 TAB PO ×3 (09:21→21:57)
[2021-08-27] MEDS: ISOSORBIDE MONONITRATE 30 MG TAB.ER.24H PO (10:10)
[2021-08-27] MEDS: DULoxetine HCL 60 MG CAPSULE.DR PO (10:10)
[2021-08-27] MEDS: METOPROLOL TARTRATE 25 MG TABLET PO ×2 (10:10→21:58)
[2021-08-27] MEDS: FLUTICASONE PROPIONATE 0.05% NA SPR 16 GM BTL (*BKC) 2 SPRAY NASAL (10:11)
--- NOTE | 2021-08-27 16:28 | PM.IMHP ---
H&P: HPI History of Present Illness Date/Time: 08/27/21 16:28 History of Present Illness ED presentation HPI narrative: Patient is a 61-year-old female presents emergency department with chief complaint of shortness of breath. Patient reports has had a cough for several days has had productive of green sputum reports that she has been getting more short of breath 2. Patient states that she has history of asthma and was treated with steroids several weeks ago patient was given a prescription today for steroids and has not been able to get that filled patient noticed that her blood oxygen levels on a pulse oximeter were in the 80s at home and decided to come to the emergency department for evaluation. The patient reports has been wheezing and felt short of breath as well. 08/27 Interval history patient is a 61-year-old female with history of asthma presented with exacerbation continued with a methylprednisone DuoNeb there is also concern the patient may have community-acquired pneumonia being treated with Rocephin azithromycin, patient states is feeling much better compared to when she arrived, also concern the patient may have COVID-19 patient is isolated and being tested will continue to monitor and follow-up further recommendation to follow. patient admitted under observation status Chief Complaint: Shortness of breath Review of Systems Review of Systems: All systems reviewed & are unremarkable except as noted in HPI and below PMFSH Past Medical History Medical History [place] disease Asthma Coronary artery disease Per patient, she has mild non obstructing coronary artery disease noted on cardiac catheterization in 2013. She is reportedly taking Imdur for this. Degenerative disc disease Fibromyalgia Gastroesophageal reflux disease Vocal cord dysfunction Surgical History Surgical History History of cardiac catheterization (~2013) Per patient, mild nonobstructing disease. History of cervical spinal surgery History of section History of cholecystectomy History of hysterectomy Family History Family History Mother Heart disease Mother Heart disease Father Heart disease Social History Social History Social History: Surrogate decision maker: Donis Gabriel, . Code status: Full code. Smoking status: Never smoker Alcohol intake: never Substance use: never Additional living arrangements comments: The patient lives with her and their dogs in [place]. They have 2 children. Additional occupation/education comments: Unemployed. Gender identity (if verbalized by the patient): Female Sexual Orientation (if Verbalized by the Patient): Straight or Heterosexual Spiritual care concerns: No Agree to blood products: Yes Meds Home Medications and Allergies Home Medications Medication Instructions Recorded Confirmed Type albuterol sulfate [Ventolin HFA] 2 puff INHALATION QID PRN 09/13/19 08/27/21 History fluticasone propionate [Allergy 2 spray INTRANASAL DAILY 09/13/19 08/27/21 History Relief (fluticasone)] isosorbide mononitrate 30 mg PO DAILY 09/13/19 08/27/21 History hydrocortisone [Cortef] 30 mg PO BID 09/14/19 08/27/21 History duloxetine [Cymbalta] 60 mg PO QAM 02/09/21 08/27/21 History clonazepam 1 mg tablet 1 mg PO QHS 08/07/21 08/27/21 History cyclobenzaprine 10 mg tablet 10 mg PO TID 08/07/21 08/27/21 History exenatide microspheres 2 mg/0.85 2 mg SUBCUT WEEKLY 08/07/21 08/27/21 History mL subcutaneous auto-injector fludrocortisone 0.1 mg tablet 0.1 mg PO DAILY 08/07/21 08/27/21 History fluticasone fur. 200 mcg-umeclid 1 inh INHALATION DAILY 08/07/21 08/27/21 History 62.5 mcg-vilant 25 mcg inhalat.powder hydrocodone 5 mg
[2021-08-27 18:23] LABS: SARS-CoV-2 RNA PCR Negative
[2021-08-27] MEDS: ENOXAPARIN 40 MG/0.4 ML SYRINGE SUB-Q (21:56)
[2021-08-27] MEDS: clonazePAM (*CRX) 0.5 MG TABLET 1 MG PO (21:57)
[2021-08-28] VITALS (15 sets, daily range): BP systolic 118–140; BP diastolic 62–69; PULSE 79–98; RESP 16–26; TEMP 36.2–36.6; O2SAT 91–95
[2021-08-28 06:20] LABS: Anion Gap 8 mmol/L (8-16); Blood Urea Nitrogen 16 mg/dL (7-17); Calcium 10.1 mg/dL (8.4-10.2); Carbon Dioxide 29 mmol/L (22-30); Chloride 105 mmol/L (98-107); Estimated CRCL calculation 91 ml/min; Estimated Glomerular Filt Rate > 60; Glucose 143 mg/dL (65-110); Potassium 4.7 mmol/L (3.4-5.0); Sodium 142 mmol/L (137-145)
[2021-08-28] MEDS: HYDROcodone/acetaminophen (*CRX) 5-325 MG TABLET 1 TAB PO ×3 (06:26→21:33)
[2021-08-28] MEDS: CYCLOBENZAPRINE HCL 10 MG TABLET PO ×3 (06:26→21:33)
[2021-08-28] MEDS: methylPREDNISolone SOD SUCC 125 MG VIAL 60 MG IV PUSH ×3 (06:27→21:36)
[2021-08-28] MEDS: ALBUTEROL SULFATE NEB 2.5 MG/0.5 ML INH 5 MG INHALATION ×3 (08:09→19:38)
[2021-08-28] MEDS: IPRATROPIUM BR 0.02% INH SOLN 0.5 MG/2.5 ML VIAL INHALATION ×3 (08:09→19:38)
[2021-08-28] MEDS: ISOSORBIDE MONONITRATE 30 MG TAB.ER.24H PO (08:32)
[2021-08-28] MEDS: DULoxetine HCL 60 MG CAPSULE.DR PO (08:32)
[2021-08-28] MEDS: PANTOPRAZOLE 40 MG TABLET PO ×2 (08:32→21:35)
[2021-08-28] MEDS: FLUTICASONE PROPIONATE 0.05% NA SPR 16 GM BTL (*BKC) 2 SPRAY NASAL (08:32)
[2021-08-28] MEDS: METOPROLOL TARTRATE 25 MG TABLET PO ×2 (08:32→21:36)
[2021-08-28] MEDS: ENOXAPARIN 40 MG/0.4 ML SYRINGE SUB-Q ×2 (08:32→21:35)
--- NOTE | 2021-08-28 15:15 | PM.IMPN ---
Progress Note: A&P Assessment and Plan (1) Pneumonia: Qualifiers: Laterality: unspecified laterality Lung location: unspecified part of lung Pneumonia type: due to unspecified organism Qualified Code(s): J18.9 - Pneumonia, unspecified organism Code(s): J18.9 - Pneumonia, unspecified organism Status: Acute Assessment and Plan: 08/27 Interval history patient is a 61-year-old female with history of asthma presented with exacerbation continued with a methylprednisone DuoNeb there is also concern the patient may have community-acquired pneumonia being treated with Rocephin azithromycin, patient states is feeling much better compared to when she arrived, also concern the patient may have COVID-19 patient is isolated and being tested will continue to monitor and follow-up further recommendation to follow. 08/28 Interval history patient COVID test is negative, however patient is a hacky cough and her lungs sound harsh patient has no fever, patient with community-acquired pneumonia exacerbation of hospital will continue methylprednisone ceftriaxone azithromycin and doing, will continue to monitor, will have PT OT evaluate the patient and further recommendation to follow if symptoms him will taper Solu-Medrol. (2) Person under investigation for COVID-19: Code(s): Z20.822 - Contact with and (suspected) exposure to COVID-19 Status: Ruled-out Assessment and Plan: patient under isolation will follow-up and further recommendation to follow (3) Acute asthma exacerbation: Code(s): J45.901 - Unspecified asthma with (acute) exacerbation Status: Acute Assessment and Plan: plan is above (4) Gastroesophageal reflux disease: Code(s): K21.9 - Gastro-esophageal reflux disease without esophagitis Status: Acute Assessment and Plan: will continue PPI (5) Hypertension: Code(s): I10 - Essential (primary) hypertension Status: Acute Assessment and Plan: will continue home regimen Subjective Date/time seen: 08/28/21 15:15 08/27 Interval history patient is a 61-year-old female with history of asthma presented with exacerbation continued with a methylprednisone DuoNeb there is also concern the patient may have community-acquired pneumonia being treated with Rocephin azithromycin, patient states is feeling much better compared to when she arrived, also concern the patient may have COVID-19 patient is isolated and being tested will continue to monitor and follow-up further recommendation to follow. 08/28 Interval history patient COVID test is negative, however patient is a hacky cough and her lungs sound harsh patient has no fever, patient with community-acquired pneumonia exacerbation of hospital will continue methylprednisone ceftriaxone azithromycin and doing, will continue to monitor, will have PT OT evaluate the patient and further recommendation to follow if symptoms him will taper Solu-Medrol. Review of Systems Review of Systems: All systems reviewed & are unremarkable except as noted in HPI and below Exam Narrative: moderately Patient is comfortable, NAD HEENT: eyes are clear and none icteric LUNGS: bilateral fair air entry with rhonchi and wheezing ABD: distended Lower extremities: no edema SKIN: nonjaundiced Neuro: grossly intact. Objective Data Vital Signs Vital Signs: Vital Signs - 24 hr 08/27/21 15:24 08/27/21 16:00 08/27/21 19:22 Temperature 97.0 F L Pulse Rate 97 105 H 98 Respiratory Rate 20 20 24 H Blood Pressure 157/67 H Pulse Oximetry 92 94 08/27/21 19:35 08/27/21 21:58 08/27/21 22:00 Temperature 97.1 F L Pulse Rate 104 H 90 106 H Respiratory Rate 22 H 18 Blood Pressure 125/66 Pulse Oximetry 91 08/28/21 06:00 08/28/21 08:09 08/28/21 08:12 Temperature 97.4 F L Pulse Rate 98 82 84 Respiratory Rate 18 20 20 Blood Pressure 118/68 Pulse Oximetry 91 95 08/28/21 08:18 08/28/21 08:32 08/03
[2021-08-28] MEDS: clonazePAM (*CRX) 0.5 MG TABLET 1 MG PO (21:32)
[2021-08-29] VITALS (7 sets, daily range): BP systolic 118; BP diastolic 63; PULSE 84–89; RESP 16–18; TEMP 36.4; O2SAT 90–99
[2021-08-29] MEDS: IPRATROPIUM BR 0.02% INH SOLN 0.5 MG/2.5 ML VIAL INHALATION ×2 (01:56→08:40)
[2021-08-29] MEDS: ALBUTEROL SULFATE NEB 2.5 MG/0.5 ML INH 5 MG INHALATION ×2 (01:56→08:40)
[2021-08-29] MEDS: HYDROcodone/acetaminophen (*CRX) 5-325 MG TABLET 1 TAB PO ×2 (06:07→13:25)
[2021-08-29] MEDS: CYCLOBENZAPRINE HCL 10 MG TABLET PO ×2 (06:07→13:25)
[2021-08-29] MEDS: methylPREDNISolone SOD SUCC 125 MG VIAL 60 MG IV PUSH (06:08)
[2021-08-29 06:38] LABS: Anion Gap 7 mmol/L (8-16); Blood Urea Nitrogen 24 mg/dL (7-17); Calcium 9.7 mg/dL (8.4-10.2); Carbon Dioxide 28 mmol/L (22-30); Chloride 104 mmol/L (98-107); Estimated CRCL calculation 91 ml/min; Estimated Glomerular Filt Rate > 60; Glucose 131 mg/dL (65-110); Potassium 4.5 mmol/L (3.4-5.0); Sodium 139 mmol/L (137-145)
[2021-08-29] MEDS: FLUTICASONE PROPIONATE 0.05% NA SPR 16 GM BTL (*BKC) 2 SPRAY NASAL (08:30)
[2021-08-29] MEDS: METOPROLOL TARTRATE 25 MG TABLET PO (08:30)
[2021-08-29] MEDS: DULoxetine HCL 60 MG CAPSULE.DR PO (08:30)
[2021-08-29] MEDS: ISOSORBIDE MONONITRATE 30 MG TAB.ER.24H PO (08:30)
[2021-08-29] MEDS: ENOXAPARIN 40 MG/0.4 ML SYRINGE SUB-Q (08:30)
[2021-08-29] MEDS: PANTOPRAZOLE 40 MG TABLET PO (08:30)
--- NOTE | 2021-08-29 08:38 | PC.NURSE ---
to xray per w/c
--- NOTE | 2021-08-29 12:06 | PM.DS ---
DS: Admitting Diagnosis Discharge Date 08/29/2021 Admitting Diagnosis shortness of breath DS: Discharge Diagnosis Discharge Diagnosis (1) Pneumonia: Qualifiers: Laterality: unspecified laterality Lung location: unspecified part of lung Pneumonia type: due to unspecified organism Qualified Code(s): J18.9 - Pneumonia, unspecified organism Code(s): J18.9 - Pneumonia, unspecified organism Status: Acute Assessment and Plan: 08/27 Interval history patient is a 61-year-old female with history of asthma presented with exacerbation continued with a methylprednisone DuoNeb there is also concern the patient may have community-acquired pneumonia being treated with Rocephin azithromycin, patient states is feeling much better compared to when she arrived, also concern the patient may have COVID-19 patient is isolated and being tested will continue to monitor and follow-up further recommendation to follow. 08/28 Interval history patient COVID test is negative, however patient is a hacky cough and her lungs sound harsh patient has no fever, patient with community-acquired pneumonia exacerbation of hospital will continue methylprednisone ceftriaxone azithromycin and doing, will continue to monitor, will have PT OT evaluate the patient and further recommendation to follow if symptoms him will taper Solu-Medrol. (2) Person under investigation for COVID-19: Code(s): Z20.822 - Contact with and (suspected) exposure to COVID-19 Status: Ruled-out Assessment and Plan: patient under isolation will follow-up and further recommendation to follow (3) Acute asthma exacerbation: Code(s): J45.901 - Unspecified asthma with (acute) exacerbation Status: Acute Assessment and Plan: plan is above (4) Gastroesophageal reflux disease: Code(s): K21.9 - Gastro-esophageal reflux disease without esophagitis Status: Acute Assessment and Plan: will continue PPI (5) Hypertension: Code(s): I10 - Essential (primary) hypertension Status: Acute Assessment and Plan: will continue home regimen DS: Summary Hospital Course Reason for hospitalization: ED presentation HPI narrative: Patient is a 61-year-old female presents emergency department with chief complaint of shortness of breath. Patient reports has had a cough for several days has had productive of green sputum reports that she has been getting more short of breath 2. Patient states that she has history of asthma and was treated with steroids several weeks ago patient was given a prescription today for steroids and has not been able to get that filled patient noticed that her blood oxygen levels on a pulse oximeter were in the 80s at home and decided to come to the emergency department for evaluation. The patient reports has been wheezing and felt short of breath as well. 08/27 Interval history patient is a 61-year-old female with history of asthma presented with exacerbation continued with a methylprednisone DuoNeb there is also concern the patient may have community-acquired pneumonia being treated with Rocephin azithromycin, patient states is feeling much better compared to when she arrived, also concern the patient may have COVID-19 patient is isolated and being tested will continue to monitor and follow-up further recommendation to follow. Hospital Course: 08/27 Interval history patient is a 61-year-old female with history of asthma presented with exacerbation continued with a methylprednisone DuoNeb there is also concern the patient may have community-acquired pneumonia being treated with Rocephin azithromycin, patient states is feeling much better compared to when she arrived, also concern the patient may have COVID-19 patient is isolated and being tested will continue to monitor and follow-up further recommendation to follow. 08/28 Interval history patient COVID test is negative, however patient is a hacky cough and her
== END 2021-08-29 13:29 | disposition home or self-care (01) ==
LOC: ANHED 08-27 01:56 → ANH3MEDSUR 08-27 02:39
PROVIDERS: Admitting Provider Internal Medicine; Emergency Provider Emergency Medicine; PCP Family Medicine; Visit Provider Family Medicine
DX: J18.9 Pneumonia, unspecified organism (principal); J45.901 Unspecified asthma with (acute) exacerbation; K21.9 Gastro-esophageal reflux disease without esophagitis; I10 Essential (primary) hypertension; Z23 Encounter for immunization; Z20.822 Contact with and (suspected) exposure to COVID-19
CPT/HCPCS: 36415; 71046; 80048; 85025; 87040; 90471; 90653; 93005; 94640; 96365; 96366; 96372; 96375; 96376; 99285; A9270; C9803; G0008; G0378; J0456; J0696; J1650; J2930; U0003; U0005

== ENCOUNTER → 2021-12-24 12:39 | Outpatient (CLI) | payer BC, SELFPAY ==
--- NOTE | ~2021-12-24 | MM_ITS ---
EXAMINATION: MM screening renata BI w olga lidia HISTORY: Screening mammogram TECHNIQUE: Craniocaudal and mediolateral oblique 3-D tomosynthesis images were obtained and synthetic 2-D images were generated. CAD analysis was submitted and interpreted. COMPARISON: No prior mammogram is available for comparison at this institution. BREAST PARENCHYMAL COMPOSITION: FINDINGS: There are new irregular ill-defined 10 mm and 6 mm masses in the outer left breast on crani ocaudal view: The approximately 10 mm mass is situated at mid depth in the upper outer quadrant. The approximately 6 mm mass is situated in the inner aspect of the mid outer left breast. Diagnostic left mammogram and left breast ultrasound examination are recommended. No suspicious mass, architectural distortion or malignant calcification, skin thickening or retractio n is noted on the right. Occasional bilateral benign calcifications. IMPRESSION: 1. Suspicious new left breast masses 2. Diagnostic left mammogram and left breast ultrasound examination are recommended. BI-RADS Category 0: Incomplete: Needs additional imaging evaluation. Reviewed, dictated and finalized at location A. SHAPER TOP IMPRESSION: 1. Suspicious new left breast masses 2. Diagnostic left mammogram and left breast ultrasound examination are recomme nded. BI-RADS Category 0: Incomplete: Needs additional imaging evaluation.
== END ==
PROVIDERS: PCP Family Medicine; Visit Provider Family Medicine
DX: Z12.31 Encounter for screening mammogram for malignant neoplasm of breast (principal); R92.8 Other abnormal and inconclusive findings on diagnostic imaging of breast
CPT/HCPCS: 77063; 77067

== ENCOUNTER 2022-01-13 11:05 | Outpatient (CLI) | payer BC, SELFPAY ==
--- NOTE | ~2022-01-13 | MMUS_ITS ---
EXAMINATION: MM diagnostic renata LT w olga lidia, US breast LT limited HISTORY: Possible left breast masses on screening mammogram TECHNIQUE: Additional 3-D tomosynthesis images of the left breast were performed and synthetic 2-D im ages were generated. CAD analysis was submitted and interpreted. High resolution limited left breast ultrasound was performed. COMPARISON: 12/24/2021, 12/22/2020 FINDINGS: MAMMOGRAPHIC FINDINGS: No definite mass persists with spot compression views of the left breast. There is no suspicious calc ification or architectural distortion. ULTRASOUND: No suspicious cystic or solid mass is identified. A 5 mm mass at the 2:00 location 5 cm from the nipp le has the appearance of an intramammary lymph node. IMPRESSION: 1. No mammographic or sonographic evidence of malignancy. 2. Recommend routine screening mammography in one year. BI-RADS Category 2: Benign finding(s). Reviewed, dictated and finalized at location A. IMPRESSION: 1. No mammographic or sonographic evidence of malignancy. 2. Recommend routine screening mammography in one year. BI-RADS Category 2: Benign finding(s).
== END 2022-01-13 11:06 | disposition home or self-care (01) ==
LOC: ANHIMG 11:07
PROVIDERS: PCP Family Medicine; Visit Provider Nurse Practitioner Family
DX: N63.20 Unspecified lump in the left breast, unspecified quadrant (principal); R92.2 Inconclusive mammogram
CPT/HCPCS: 76642; 77061; 77065; G0279

== ENCOUNTER 2022-11-03 00:15 | Observation (INO) | payer BC, SELFPAY ==
[2022-11-03] VITALS (7 sets, daily range): BP systolic 119–144; BP diastolic 56–68; PULSE 78–107; RESP 14–20; TEMP 36.2–36.9; O2SAT 93–98; BMI 37.7
--- NOTE | ~2022-11-03 | NM_ITS ---
EXAMINATION: NM pulmonary perfusion DATE: 11/03/2022 07:17 INDICATION: Hemoptysis. TECHNIQUE: 5.11 mCi Tc-99m MAA was administered intravenously for perfusion images. Scintigraphic im ages of the chest were obtained. COMPARISON: Chest single view 11/03/2022 FINDINGS: Perfusion images show no defects. IMPRESSION: 1. Pulmonary embolism absent (normal perfusion). Reviewed, dictated and finalized at location A. R AND REGULATOR SHOP SUPERVISOR
--- NOTE | ~2022-11-03 | CT_ITS ---
EXAMINATION: CTA chest PE protocol DATE: 11/03/2022 17:58 INDICATION: Hemoptysis TECHNIQUE: Computed tomography angiography (CTA) of the chest was performed with 100 mL Omnipaque-350 intravenous contrast timed to evaluate the pulmonary arteries. Coronal maximum intensity projection 3D-reconstructions were created by the technologist. The dose-length product (DLP) was 752.54 mGy-cm. Automated exposure control and iterative reconstruction technique were employed. COMPARISON: Lung perfusion scan, same date, which was normal. Noncontrast CT of the chest, same date. FINDINGS: Lung parenchyma and airways: Dependent atelectasis. Left lower lobe and lingular scar. Multiple calci fied granulomas. Pleura: Unremarkable. Thoracic inlet, axillae and chest wall: Irregular 1.7 cm hypodense right thyroid lobe nodule. Thoracic aorta: Normal. Mediastinum: Small hiatal hernia. Calcified hilar and mediastinal lymph nodes. Enlarged central pulmo nary arteries as can be seen with pulmonary arterial hypertension. Heart and pericardium: Normal. Coronary artery calcifications: Moderate. Upper abdomen: Posterior gastric diverticulum. Status post cholecystectomy. Pneumobilia. Bones: No acute osseous finding. Pulmonary arteries: Study quality: Mildly limited by motion, beam hardening, and quantum mottle, but overall diagnostic. No pulmonary emboli detected. IMPRESSION: No CT evidence of acute pulmonary embolus. 1.7 cm right thyroid nodule, recommend nonemergent, outpat ient thyroid ultrasound for further characterization Reviewed, dictated and finalized at location K. OGENERATOR OPERATOR IMPRESSION: No CT evidence of acute pulmonary embolus. 1.7 cm right thyroid nodule, recomme nd nonemergent, outpatient thyroid ultrasound for further characterization
--- NOTE | ~2022-11-03 | XR_ITS ---
EXAMINATION: XR chest 1V portable DATE: 11/03/2022 04:12 INDICATION: Hemoptysis. TECHNIQUE: A single frontal view of the chest was obtained. COMPARISON: Chest 2 views 08/29/2021 FINDINGS: A calcified right lung nodule is consistent with old granulomatous disease. No pleural effu marisel or pneumothorax. The heart size is normal. Surgical clips in the right upper quadrant are likely from cholecystectomy. IMPRESSION: 1. No acute cardiopulmonary disease. Reviewed, dictated and finalized at location A. NTIFIC ARTIST
--- NOTE | ~2022-11-03 | CT_ITS ---
EXAMINATION:CT diagnostic chest wo con DATE: 11/03/2022 10:14 INDICATION: Hemoptysis. TECHNIQUE: Computed tomography (CT) of the chest was performed without intravenous contrast. Automate d exposure control and iterative reconstruction technique were employed. The dose-length product (DLP ) was 463.14 mGy-cm. COMPARISON: Chest CT 02/06/2021, thyroid ultrasound 08/19/2021 FINDINGS: There is mild dependent atelectasis bilaterally. Calcified pulmonary nodules and calcified hilar and mediastinal lymph nodes are consistent with old granulomas disc disease. There is a small p neumatocele in left lower lobe. There are two 3 mm nodules in right upper lobe, likely benign. No ple ural effusion. Again seen is a multinodular goiter. The heart size is normal. There are coronary rivas ry calcifications. No pericardial effusion. The central pulmonary arteries are enlarged, consistent w ith pulmonary arterial hypertension. There is a small sliding hiatal hernia. There are changes of cho lecystectomy. Pneumobilia is noted, likely secondary to sphincterotomy. Calcifications in the spleen are consistent with old granulomatous disease. There is severe thoracic spondylosis. There is mild ch ronic anterior wedging of multiple vertebral bodies. IMPRESSION: 1. Small sliding hiatal hernia. Reviewed, dictated and finalized at location A. H LAY OUT TECHNICIAN
[2022-11-03 04:31] LABS: Basophils Percent Auto 0.4 % (0.2-1.2); Eosinophils Absolute Auto 0.2 K/mm3 (0-0.3); Eosinophils Percent Auto 1.9 % (0-4.4); Hematocrit 40.1 % (37.0-47.0); Hemoglobin 12.8 g/dL (12.0-15.0); Immature Granulocyte Absolute 0.07 K/mm3 (0.00-0.031); Immature Granulocyte Percent A 0.8 % (0-0.5); Lymphocytes Absolute Auto 2.45 K/mm3 (0.9-3.2); Lymphocytes Percent Auto 27.5 % (18.3-44.2); Mean Corpuscular HGB Conc 31.9 g/dl (32-36); Mean Corpuscular Hemoglobin 27.6 pg (26-34); Mean Corpuscular Volume 86.6 fl (80-100); Mean Platelet Volume 9.7 fl (7.4-10.4); Monocytes Absolute Auto 0.7 K/mm3 (0.1-0.6); Monocytes Percent Auto 8.2 % (2.6-8.5); Neutrophils Absolute Auto 5.5 K/mm3 (1.3-6.7); Neutrophils Percent Auto 61.2 % (45.5-73.1); Platelet Count Result 278 k/mm3 (150-375); Red Blood Count 4.63 M/mm3 (4.2-5.4); Red Cell Distribution Width 14.2 % (11.5-14.5); White Blood Count 8.9 K/mm3 (4.5-10.0)
--- NOTE | 2022-11-03 04:33 | ED.GENADULT ---
HPI - General Adult General Chief complaint: Upper Respiratory Infection <Tim Kelsey DO - Last Filed: 11/03/22 19:18> Stated complaint: coughing up blood <Tim Kelsey DO - Last Filed: 11/03/22 19:18> Time Seen by Provider: 11/03/22 03:42 <Tim Kelsey DO - Last Filed: 11/03/22 19:18> Source: RN notes reviewed <Tim Kelsey DO - Last Filed: 11/03/22 19:18> History of Present Illness HPI narrative: Patient presents emergency department from home for hemoptysis. Patient states she has had a cough for the past 2 days states she is coughing up some pinkish tinged sputum yesterday that is now bright red in color she states that she has had no shortness of breath with the symptoms she denies any fevers or chills chest pain abdominal pain nausea or vomiting. States that she is on Plavix currently denies any history of blood clots before in the past. Patient does have Kleenex with her with coughing up bright red blood <Tim Kelsey DO - Last Filed: 11/03/22 19:18> Related Data Home medications: Home Medications Medication Instructions Recorded Confirmed duloxetine 60 mg capsule,delayed 60 mg PO QAM 02/09/21 08/18/22 release (Cymbalta) exenatide microspheres 2 mg/0.85 2 mg subcut WEEKLY 08/07/21 08/18/22 mL subcutaneous auto-injector (Emiliano Dumont) fludrocortisone 0.1 mg tablet 0.1 mg PO DAILY 08/07/21 11/03/22 fluticasone fur. 200 mcg-umeclid 1 inh inhalation DAILY 08/07/21 08/18/22 62.5 mcg-vilant 25 mcg inhalat.powder (Trelegy Ellipta) metoprolol tartrate 25 mg tablet 25 mg PO BID 08/07/21 08/18/22 omeprazole 40 mg capsule,delayed 40 mg PO DAILY 08/07/21 08/18/22 release atorvastatin 20 mg tablet 20 mg PO Q48H 11/03/22 11/03/22 hydrocortisone 5 mg tablet 15 mg PO 0800 11/03/22 11/03/22 hydrocortisone 5 mg tablet 15 mg PO 1300 11/03/22 11/03/22 <Tim Kelsey DO - Last Filed: 11/03/22 19:18> Allergies/adverse reactions: Allergies Allergy/AdvReac Type Severity Reaction Status Date / Time clams Allergy Diarrhea Verified 11/03/22 18:08 codeine Allergy Chest Pain Verified 11/03/22 18:08 horseradish Allergy Redness of Verified 11/03/22 18:08 Skin indomethacin [From Indocin] Allergy Chest Pain Verified 11/03/22 18:08 Iodine and Iodide Containing Allergy Unknown Verified 11/03/22 07:23 Produc shrimp Allergy Diarrhea Verified 11/03/22 18:08 <Tim Kelsey DO - Last Filed: 11/03/22 19:18> Review of Systems Review of Systems: Gen.: Denies fevers or chills ENT: Denies congestion Respiratory: See HPI CV: Denies chest pain or palpitations GI: Denies abdominal pain nausea, emesis or diarrhea Musculoskeletal: Denies back pain or muscle pain Neuro: Denies numbness, tingling, weakness or focal weakness Skin: Denies rash Except as documented, all other systems reviewed and negative <Tim Kelsey DO - Last Filed: 11/03/22 19:18> [facility] Past Medical History Medical History: Medical History Parth disease Asthma Chronic neck pain Coronary artery disease Per patient, she has mild non obstructing coronary artery disease noted on cardiac catheterization in 2013. She is reportedly taking Imdur for this. Degenerative disc disease Fibromyalgia Gastroesophageal reflux disease Sleep behavior disorder, REM Vocal cord dysfunction <Tim Kelsey DO - Last Filed: 11/03/22 19:18> Surgical History Surgical History: Surgical History History of cardiac catheterization (~2013) Per patient, mild nonobstructing disease. History of cervical spinal surgery History of section History of cholecystectomy History of hysterectomy <Tim Kelsey DO - Last Filed: 11/03/22 19:18> Family History Family History: Family History (Updated 11/03/22 @ 18:18 by Princess Lozada RN) Mother
[2022-11-03] MEDS: predniSONE 40 MG, predniSONE 10 MG 50 MG PO ×3 (04:34→17:40)
[2022-11-03 04:44] LABS: Alanine Aminotransferase 29 U/L (6-35); Albumin Level 3.9 g/dL (3.5-5.1); Alkaline Phosphatase 132 U/L (38-126); Anion Gap 5 mmol/L (8-16); Aspartate Amino Transferase 39 U/L (14-36); Bilirubin,Total 0.5 mg/dL (0.2-1.3); Blood Urea Nitrogen 21 mg/dL (7-17); Calcium 8.8 mg/dL (8.4-10.2); Carbon Dioxide 28 mmol/L (22-30); Chloride 107 mmol/L (98-107); Estimated CRCL calculation 93 ml/min; Estimated Glomerular Filt Rate > 60; Glucose 126 mg/dL (65-110); Potassium 3.7 mmol/L (3.4-5.0); Sodium 140 mmol/L (137-145)
[2022-11-03 04:50] LABS: Prothrombin Time 13.1 Seconds (11.1-14.7)
[2022-11-03 04:51] LABS: Partial Thromboplastin Time 25.2 SECONDS (22.3-36.8)
[2022-11-03 05:20] LABS: Influenza A QL RT-PCR Negative (Negative); Influenza B QL RT-PCR Negative (Negative); SARS-CoV-2 RNA PCR Negative
[2022-11-03 11:11] LABS: Hematocrit 41.3 % (37.0-47.0); Hemoglobin 13.4 g/dL (12.0-15.0)
[2022-11-03] MEDS: diphenhydrAMINE HCl INJ 50 MG/ML VIAL IV PUSH (12:20)
--- NOTE | 2022-11-03 12:30 | PM.IMHP ---
H&P: HPI History of Present Illness Date/Time: 11/03/22 12:30 Chief Complaint: Coughed up blood. Narrative: This is a pleasant 62-year-old female with asthma, vocal cord dysfunction, hypertension, and Ulysses's disease who presented to the emergency department from home for evaluation after she coughed up blood. She has had a cough for several days which has been productive of green sputum however yesterday she noticed that it was pink tinged and overnight she started to cough up iban blood which she describes as bright red blood and later maroon-colored. She also endorses some sinus congestion but goes on to say that several weeks ago and she and her family members had an upper respiratory infection. She has not had a fever or chills but she does endorse some sweats. She is on Plavix for nonobstructing coronary artery disease on cardiac catheterization done within the last 6 months. She is not on oral anticoagulation. She has not had any nose bleeds and she denies nausea and vomiting. She has not noticed any dark stools. She also denies chest pain, pleuritic pain, and palpitations. Weight has remained stable. She has no history of malignancy or TB. Vital signs were stable on arrival to ED. her D-dimer was mildly elevated though she reported contrast allergy and a subsequent V/Q scan showed no evidence of PE. She was pretreated for possible contrast allergy and a subsequent CTA of the chest showed no evidence of pulmonary embolism or pulmonary disease. Case was discussed with Dr. Galaviz (quotation checker supervisor fish hatchery) by the ED physician he recommends starting the patient on empiric antibiotics, pending official consult tomorrow. Review of Systems Review of Systems: Twelve systems were reviewed and are negative except for as per HPI. [facility] Past Medical History Medical History (Updated 11/03/22 @ 20:25 by Helen Riddle PA-C) Parth disease Asthma Chronic neck pain Coronary artery disease Per patient, she has non obstructing coronary artery disease noted on cardiac catheterization in summer 2021. Degenerative disc disease Fibromyalgia Gastroesophageal reflux disease Sleep behavior disorder, REM Vocal cord dysfunction Surgical History Surgical History History of cardiac catheterization (~2013) Per patient, mild nonobstructing disease. History of cervical spinal surgery History of section History of cholecystectomy History of hysterectomy Family History Family History Mother Heart disease Hypertension Father Heart disease Hypertension Parkinson disease Sibling Heart disease Social History Social History (Updated 11/03/22 @ 20:22 by Helen Riddle PA-C) Social History: Surrogate decision maker: Donis Gabriel, . Code status: Full code. Smoking status: Never smoker Alcohol intake: never Substance use: never Lack of Transportation: No Lack of Food: Never True Current Housing: I Have Housing Concerned About Future Housing: No Difficulty Paying Gas/Electric Bills: No Difficulty Paying for Meds: YES Currently Unemployed: No Education: Bachelor's Degree Difficulty w/ Childcare or Family Care: No Additional living arrangements comments: The patient lives with her and their dogs in [place]. They have 2 children. Additional occupation/education comments: Unemployed. Spiritual care concerns: No Agree to blood products: Yes Meds Home Medications and Allergies Home Medications Medication Instructions Recorded Confirmed Type duloxetine 60 mg capsule,delayed 60 mg PO QAM 02/09/21 11/03/22 History release (Cymbalta) fludrocortisone 0.1 mg tablet 0.1 mg PO DAILY 08/07/21 11/03/22 History fluticasone fur. 200 mcg-umeclid 1 inh inhalation DAILY 08/07/21 11/03/22 History 62.5 mcg-vilant 25 mcg inhalat.powder (Trelegy Ellipta) omeprazol
--- NOTE | 2022-11-03 16:40 | PC.NURSE ---
This patient, Liliana Gabriel, was admitted to [facility] Surg Room 317-02. Patient/family oriented to hospital policies and general routines including ID bracelet, bed and alarms, visiting hours, pain management, procedures, bathroom and other care routines, personal items, smoking policy, room service/diet, and visiting hours. Information on how to activate the Rapid Response Team has been discussed. Patient/Family are encouraged to report perceived risks to care and to ask questions if they do not understand what they are told or what they should do.
[2022-11-03] MEDS: CYCLOBENZAPRINE HCL 10 MG TABLET PO (21:16)
[2022-11-03] MEDS: ARTIFICIAL TEARS OPHTH SOLN 15 ML BOTTLE 2 DROP EACH EYE (21:16)
[2022-11-03] MEDS: ATORVASTATIN 20 MG TABLET PO (21:17)
[2022-11-03] MEDS: RANOLAZINE 500 MG TAB.ER.12H PO (21:17)
[2022-11-03] MEDS: METOPROLOL TARTRATE 50 MG TAB PO (21:17)
[2022-11-04] MEDS: predniSONE 40 MG, predniSONE 10 MG 50 MG PO (01:44)
[2022-11-04 06:00] VITALS: BP 127/60; PULSE 76; RESP 14; TEMP 36.6; O2SAT 96
[2022-11-04 07:20] LABS: Basophils Percent Auto 0.2 % (0.2-1.2); Hematocrit 43.8 % (37.0-47.0); Hemoglobin 13.8 g/dL (12.0-15.0); Immature Granulocyte Absolute 0.19 K/mm3 (0.00-0.031); Lymphocytes Absolute Auto 1.19 K/mm3 (0.9-3.2); Lymphocytes Percent Auto 6.2 % (18.3-44.2); Mean Corpuscular HGB Conc 31.5 g/dl (32-36); Mean Corpuscular Hemoglobin 27.1 pg (26-34); Mean Corpuscular Volume 86.1 fl (80-100); Mean Platelet Volume 9.8 fl (7.4-10.4); Monocytes Absolute Auto 0.4 K/mm3 (0.1-0.6); Monocytes Percent Auto 2.3 % (2.6-8.5); Neutrophils Absolute Auto 17.3 K/mm3 (1.3-6.7); Neutrophils Percent Auto 90.3 % (45.5-73.1); Platelet Count Result 291 k/mm3 (150-375); Red Blood Count 5.09 M/mm3 (4.2-5.4); White Blood Count 19.1 K/mm3 (4.5-10.0)
[2022-11-04 07:37] LABS: Alanine Aminotransferase 28 U/L (6-35); Alkaline Phosphatase 110 U/L (38-126); Anion Gap 7 mmol/L (8-16); Aspartate Amino Transferase 28 U/L (14-36); Bilirubin,Total 0.6 mg/dL (0.2-1.3); Blood Urea Nitrogen 15 mg/dL (7-17); Calcium 9.2 mg/dL (8.4-10.2); Carbon Dioxide 24 mmol/L (22-30); Chloride 105 mmol/L (98-107); Estimated CRCL calculation 113 ml/min; Estimated Glomerular Filt Rate > 60; Glucose 138 mg/dL (65-110); Magnesium 2.6 mg/dL (1.6-2.3); Potassium 3.9 mmol/L (3.4-5.0); Sodium 136 mmol/L (137-145)
[2022-11-04 08:26] LABS: Hemoglobin A1C 5.7 % (<5.7)
[2022-11-04] MEDS: HYDROcodone/acetaminophen (*CRX) 7.5-325 MG TABLET 1 TAB PO ×3 (08:35→21:20)
[2022-11-04] MEDS: ARTIFICIAL TEARS OPHTH SOLN 15 ML BOTTLE 2 DROP EACH EYE ×2 (08:36→21:17)
[2022-11-04] MEDS: DULoxetine HCL 60 MG CAPSULE.DR PO (08:36)
[2022-11-04] MEDS: ISOSORBIDE MONONITRATE 60 MG TAB.ER.24H PO (08:37)
[2022-11-04] MEDS: PANTOPRAZOLE 40 MG TABLET PO ×2 (08:37→17:19)
[2022-11-04] MEDS: RANOLAZINE 500 MG TAB.ER.12H PO ×2 (08:37→21:16)
[2022-11-04] MEDS: HYDROCORTISONE 5 MG TABLET 15 MG PO ×2 (08:37→13:17)
[2022-11-04] MEDS: FLUDROCORTISONE ACETATE 0.1 MG TABLET PO (08:37)
[2022-11-04 08:38] VITALS: PULSE 76
[2022-11-04] MEDS: CYCLOBENZAPRINE HCL 10 MG TABLET PO ×3 (08:38→21:16)
[2022-11-04] MEDS: ACIDOPHILUS/BULGARICUS CHEWABLE TABLET 1 TABLET PO (08:38)
[2022-11-04] MEDS: METOPROLOL TARTRATE 50 MG TAB PO ×2 (08:38→21:15)
--- NOTE | 2022-11-04 09:30 | PM.CNPUL ---
Assessment and Plan Assessment and plan (1) Hemoptysis: Code(s): R04.2 - Hemoptysis Status: Acute Assessment and Plan: Patient with a history of asthma and vocal cord dysfunction verses laryngeal spasm who has had good asthma control on trelegy 200 as an outpatient. Approximately 3 weeks ago she developed sinus congestion and a cough which She took Tasha and Flonase and the sinus congestion resolved but the cough persisted. Patient developed coughing and wheezing on 11/02/2022 associated with hemoptysis. Peak hemoptysis occurred on 11/02/2022 with 6-7 episodes that evening. She is a never smoker, has no wheezing on exam and no evidence of an asthma exacerbation, her CT angiogram of the chest is negative for PE. There is no evidence of masses, nodules, interstitial lung disease or pleural disease on her CT scan of the chest. Her influenza in COVID RT PCR studies are negative. She has improved with holding her aspirin and Plavix and with ceftriaxone and azithromycin. Agree with holding aspirin and Plavix. The chart states and the patient states that she has nonobstructive coronary artery disease and was put on Plavix to help her blood flow by her vice president marketing & development. She tells me she has no cardiac stents. Agree with continued treatment with ceftriaxone and azithromycin for possible bronchitis or early community-acquired pneumonia. Will follow her clinically. History of Present Illness History of Present Illness Consult date: 11/04/22 Chief complaint: Hemoptysis Narrative: 11/04/2022: This is a new pulmonary consult for hemoptysis. 62-year-old with a history of asthma since childhood, vocal cord dysfunction versus laryngeal spasm, hypertension, Eddy's disease and fibromyalgia. Regarding patient's asthma she is followed by an outside electronics processor and I have an office note from 07/29/2022 stating she has moderate persistent asthma diagnosed in 2011. She had spirometry on 07/29/2022 with an FEV1 of 2.04, 80% predicted, FVC 2.55 L, 78% predicted, a ratio of 79%. She had lung volumes in 2019 with a total lung capacity of 97%, residual volume of 102% and a DLCO of 73%. There were no changes in her spirometry between 02/01/2019 and 07/29/2022. On 07/29/2022 the patient's last exacerbation was 06/2022 secondary to stopping her Tasha. The plan was for her to continue trilogy. The patient is a never smoker. The patient denies vaping, illicit drug use, sandblasting, welding, asbestos were, professional painting or steel ball mill operator. The patient is a psychologist. Three weeks ago the patient, daughter, son-in-law and developed sinus congestion and cough. She developed no GI symptoms but the other family members had vomiting. Patient started taking Tasha and Flonase and her sinuses resolved over the next 7 days and her cough got better but did not completely resolve. On 11/02/2022 the patient had an episode of her usual esophageal spasm and she took 3 nitroglycerin followed by drinking some water and this helped. Approximately 30-60 minutes later she developed coughing and wheezing and produced 1 bright red hemoptysis episode. Later in the evening she had coughing followed by dark red hemoptysis 6-7 times. Patient last took her aspirin and Plavix the morning of 11/02/2022. Patient came to the emergency room 11/03/2022 at 02:00. In the emergency room her saturations were 98%, her lungs were clear, her hemoglobin was 12.8, white blood cell count was 8.9, eosinophils were 1.9%, INR was 1.0, PTT was 25.2, D-dimer was positive at 0.5 with normal being less than 0.48. Patient had a perfusion scan which was normal. Patient had a CT of the chest which was normal and patient was treated with prednisone and Benadryl and had a CT angiogram of the chest that showed no pulmonary embolism. There were no masses, interstitial lung disease, focal infiltrates, or pleural disease. She did have evidence of 0 DD with calcified mediastin
--- NOTE | 2022-11-04 11:45 | P.PNIM_ITS ---
Progress Note: A&P Assessment and Plan (1) Hemoptysis: Code(s): R04.2 - Hemoptysis Status: Acute Assessment and Plan: * Presented with hemoptysis * Etiology not clear * V/Q scan negative for PE * CTA of shows no PE * Notable cough noted recently, could caused irritation * Antibiotics azithromycin and ceftriaxone per pulmonology * Hold clopidogrel and aspirin for now * H/H remains stable at this time * Pulmonary consulted * Pulmonology would like to treat the patient for a bacterial bronchitis (2) Right thyroid nodule: Code(s): E04.1 - Nontoxic single thyroid nodule Status: Acute Assessment and Plan: * CTA shows a 1.7cm right thyroid nodule * Recommending a nonemergent outpatient ultrasound * most likely stable at this point (3) Hypertension: Code(s): I10 - Essential (primary) hypertension Status: Acute Assessment and Plan: * BP 127/60 * continue imdur, metoprolol * Trend BP * Adjust therapy as indicated (4) Coronary artery disease: Code(s): I25.10 - Atherosclerotic heart disease of [place] coronary artery without angina pectoris Status: Acute Assessment and Plan: * Recent cardiac cath 6 months ago * Non-obstruction CAD noted * Hold plavix and aspirin with bleeding noted * Continue the other multiple chest pain medications * Continue metoprolol (5) Gastroesophageal reflux disease: Code(s): K21.9 - Gastro-esophageal reflux disease without esophagitis Status: Acute Assessment and Plan: * Continue PPI (6) [place] disease: Code(s): E27.1 - Primary adrenocortical insufficiency Status: Chronic Assessment and Plan: * Continue hydrocortisone and fludrocortisone for adrenal insufficiency * Stable at this time (7) Hyperglycemia: Code(s): R73.9 - Hyperglycemia, unspecified Status: Acute Assessment and Plan: * Glucose 138 * A1c 5.7 * Accu-cheks, hypoglycemia protocol * Consider adding insulin * No home medications (8) Asthma: Qualifiers: Asthma complication type: unspecified Asthma persistence: unspecified Asthma severity: unspecified severity Qualified Code(s): J45.909 - Unspecified asthma, uncomplicated Code(s): J45.909 - Unspecified asthma, uncomplicated Status: Chronic Assessment and Plan: * Asthma is controlled without evidence of exacerbation * continue inhalers. * Trend mag Time Spent With Patient Time with patient: Greater than 35 minutes Subjective Date/time seen: 11/04/22 1145 Interval history: 11/04/22 1145 Patient is doing ok. She stated that she feels that she is back to baseline. She is dening any chest pain, shortness of breath, nausea, vomiting, diarrhea. Talked with pulmonology who is recommending that the aspirin and Plavix be stopped. Put a call out and talked to Jacquelyn at the office of Dr. Quinonez with [facility] ([phone]). It does appear that she has not had any stents placed. And that the plavix does not need to be restarted. Per her cad specialist she was placed on those because of moderate coronary artery disease. Her he did say that she will need to follow up with him however the cad specialist would prefer
--- NOTE | 2022-11-04 11:45 | PM.IMPN ---
Progress Note: A&P Assessment and Plan (1) Hemoptysis: Code(s): R04.2 - Hemoptysis Status: Acute Assessment and Plan: Presented with hemoptysis Etiology not clear V/Q scan negative for PE CTA of shows no PE Notable cough noted recently, could caused irritation Antibiotics azithromycin and ceftriaxone per pulmonology Hold clopidogrel and aspirin for now H/H remains stable at this time Pulmonary consulted Pulmonology would like to treat the patient for a bacterial bronchitis (2) Right thyroid nodule: Code(s): E04.1 - Nontoxic single thyroid nodule Status: Acute Assessment and Plan: CTA shows a 1.7cm right thyroid nodule Recommending a nonemergent outpatient ultrasound most likely stable at this point (3) Hypertension: Code(s): I10 - Essential (primary) hypertension Status: Acute Assessment and Plan: BP 127/60 continue imdur, metoprolol Trend BP Adjust therapy as indicated (4) Coronary artery disease: Code(s): I25.10 - Atherosclerotic heart disease of [place] coronary artery without angina pectoris Status: Acute Assessment and Plan: Recent cardiac cath 6 months ago Non-obstruction CAD noted Hold plavix and aspirin with bleeding noted Continue the other multiple chest pain medications Continue metoprolol (5) Gastroesophageal reflux disease: Code(s): K21.9 - Gastro-esophageal reflux disease without esophagitis Status: Acute Assessment and Plan: Continue PPI (6) [place] disease: Code(s): E27.1 - Primary adrenocortical insufficiency Status: Chronic Assessment and Plan: Continue hydrocortisone and fludrocortisone for adrenal insufficiency Stable at this time (7) Hyperglycemia: Code(s): R73.9 - Hyperglycemia, unspecified Status: Acute Assessment and Plan: Glucose 138 A1c 5.7 Accu-cheks, hypoglycemia protocol Consider adding insulin No home medications (8) Asthma: Qualifiers: Asthma complication type: unspecified Asthma persistence: unspecified Asthma severity: unspecified severity Qualified Code(s): J45.909 - Unspecified asthma, uncomplicated Code(s): J45.909 - Unspecified asthma, uncomplicated Status: Chronic Assessment and Plan: Asthma is controlled without evidence of exacerbation continue inhalers. Trend mag Time Spent With Patient Time with patient: Greater than 35 minutes Subjective Date/time seen: 11/04/22 1145 Interval history: 11/04/22 1145 Patient is doing ok. She stated that she feels that she is back to baseline. She is dening any chest pain, shortness of breath, nausea, vomiting, diarrhea. Talked with pulmonology who is recommending that the aspirin and Plavix be stopped. Put a call out and talked to Jacquelyn at the office of Dr. Quinonez with [facility] ([phone]). It does appear that she has not had any stents placed. And that the plavix does not need to be restarted. Per her staff rn she was placed on those because of moderate coronary artery disease. Her he did say that she will need to follow up with him however the staff rn would prefer that a workup for his the hemoptysis be performed 1st. Her appointment with Cardiology is November 28. 11/03/22? 12:30 This is a pleasant 62-year-old female with asthma, vocal cord dysfunction, hypertension, and [place]'s disease who presented to the emergency department from home for evaluation after she coughed up blood. She has had a cough for several days which has been productive of green sputum however yesterday she noticed that it was pink tinged and overnight she started to cough up iban blood which she describes as bright red blood and later maroon-colored. She also endorses some sinus congestion but goes on to say th
[2022-11-04 14:00] VITALS: BP 128/74; PULSE 75; RESP 18; TEMP 36.5; O2SAT 95
[2022-11-04 21:15] VITALS: PULSE 75
[2022-11-04 22:00] VITALS: BP 107/60; PULSE 77; RESP 18; TEMP 36.2; O2SAT 97
[2022-11-04 23:34] VITALS: O2SAT 96
[2022-11-05] MEDS: HYDROcodone/acetaminophen (*CRX) 7.5-325 MG TABLET 1 TAB PO ×2 (05:33→12:34)
[2022-11-05 06:00] VITALS: BP 104/65; PULSE 72; RESP 18; TEMP 36.4; O2SAT 93
[2022-11-05] MEDS: CYCLOBENZAPRINE HCL 10 MG TABLET PO ×2 (06:19→12:32)
[2022-11-05 06:35] LABS: Basophils Percent Auto 0.3 % (0.2-1.2); Eosinophils Percent Auto 0.3 % (0-4.4); Hematocrit 39.1 % (37.0-47.0); Hemoglobin 12.5 g/dL (12.0-15.0); Immature Granulocyte Absolute 0.09 K/mm3 (0.00-0.031); Immature Granulocyte Percent A 0.8 % (0-0.5); Lymphocytes Absolute Auto 2.81 K/mm3 (0.9-3.2); Lymphocytes Percent Auto 23.7 % (18.3-44.2); Mean Corpuscular Hemoglobin 27.4 pg (26-34); Mean Corpuscular Volume 85.7 fl (80-100); Mean Platelet Volume 9.9 fl (7.4-10.4); Monocytes Absolute Auto 0.8 K/mm3 (0.1-0.6); Monocytes Percent Auto 6.7 % (2.6-8.5); Neutrophils Absolute Auto 8.1 K/mm3 (1.3-6.7); Neutrophils Percent Auto 68.2 % (45.5-73.1); Platelet Count Result 264 k/mm3 (150-375); Red Blood Count 4.56 M/mm3 (4.2-5.4); Red Cell Distribution Width 14.3 % (11.5-14.5); White Blood Count 11.9 K/mm3 (4.5-10.0)
[2022-11-05 06:57] LABS: Chloride 104 mmol/L (98-107)
[2022-11-05 07:03] LABS: Alanine Aminotransferase 23 U/L (6-35); Albumin Level 3.4 g/dL (3.5-5.1); Alkaline Phosphatase 87 U/L (38-126); Anion Gap 4 mmol/L (8-16); Aspartate Amino Transferase 24 U/L (14-36); Bilirubin,Total 0.6 mg/dL (0.2-1.3); Blood Urea Nitrogen 21 mg/dL (7-17); Calcium 8.4 mg/dL (8.4-10.2); Carbon Dioxide 32 mmol/L (22-30); Estimated CRCL calculation 73 ml/min; Estimated Glomerular Filt Rate > 60; Glucose 87 mg/dL (65-110); Magnesium 2.5 mg/dL (1.6-2.3); Potassium 3.7 mmol/L (3.4-5.0); Sodium 140 mmol/L (137-145)
[2022-11-05 08:54] VITALS: O2SAT 95
[2022-11-05] MEDS: FLUTICASONE/UMECLIDIN/VILANTER 200-62.5-25 MCG ELLIPTA 1 PUFF INHALATION (08:54)
[2022-11-05] MEDS: ARTIFICIAL TEARS OPHTH SOLN 15 ML BOTTLE 2 DROP EACH EYE (09:20)
[2022-11-05 09:37] VITALS: PULSE 72
[2022-11-05] MEDS: HYDROCORTISONE 5 MG TABLET PO ×2 (09:37→12:32)
[2022-11-05] MEDS: HYDROCORTISONE 10 MG TABLET PO ×2 (09:37→12:34)
[2022-11-05] MEDS: METOPROLOL TARTRATE 50 MG TAB PO (09:37)
[2022-11-05] MEDS: ISOSORBIDE MONONITRATE 60 MG TAB.ER.24H PO (09:37)
[2022-11-05] MEDS: ACIDOPHILUS/BULGARICUS CHEWABLE TABLET 1 TABLET PO (09:38)
[2022-11-05] MEDS: PANTOPRAZOLE 40 MG TABLET PO (09:38)
[2022-11-05] MEDS: FLUDROCORTISONE ACETATE 0.1 MG TABLET PO (09:38)
[2022-11-05] MEDS: DULoxetine HCL 60 MG CAPSULE.DR PO (09:39)
[2022-11-05] MEDS: RANOLAZINE 500 MG TAB.ER.12H PO (09:39)
--- NOTE | 2022-11-05 11:04 | PM.PNPUL ---
Progress Note: A&P Assessment and Plan (1) Hemoptysis: Code(s): R04.2 - Hemoptysis Status: Acute Assessment and Plan: Patient with a history of asthma and vocal cord dysfunction verses laryngeal spasm who has had good asthma control on trelegy 200 as an outpatient. Approximately 3 weeks ago she developed sinus congestion and a cough which She took Tasha and Flonase and the sinus congestion resolved but the cough persisted. Patient developed coughing and wheezing on 11/02/2022 associated with hemoptysis. Peak hemoptysis occurred on 11/02/2022 with 6-7 episodes that evening. She is a never smoker, has no wheezing on exam and no evidence of an asthma exacerbation, her CT angiogram of the chest is negative for PE. There is no evidence of masses, nodules, interstitial lung disease or pleural disease on her CT scan of the chest. Her influenza in COVID RT PCR studies are negative. She has improved with holding her aspirin and Plavix and with ceftriaxone and azithromycin. Agree with holding aspirin and Plavix. The chart states and the patient states that she has nonobstructive coronary artery disease and was put on Plavix to help her blood flow by her band lining bander. She tells me she has no cardiac stents. Agree with continued treatment with ceftriaxone and azithromycin for possible bronchitis or early community-acquired pneumonia. 11/05/2022 Patient states she is breathing at her baseline and feels normal. She denies any hemoptysis since 11/04/2022 at 5:45 a.m.. She has a minimal dry cough. Her room air saturations are 96%. From a pulmonary perspective patient is ready to be discharged on these pulmonary medications Levaquin 750 mg p.o. q.day x7 days, trelegy 200-60 2.5-25 at 1 puff q.day Albuterol 2 puffs q.4 hours p.r.n. shortness of breath or wheezing I told the patient if she has no further hemoptysis that she could restart her aspirin 81 mg p.o. q.day on 11/06/2022. Regarding her Plavix told the patient to hold her Plavix and to call her band lining bander later today and tell them that she was admitted to the hospital with hemoptysis and that her aspirin and Plavix were held and that the band lining bander needs to assess the risk benefit analysis for re- initiating Plavix in the future. She will follow-up with her prior mission planner at [facility] and I told her to call them today and informed them that she was admitted to the hospital with hemoptysis Which improved with discontinuation of aspirin and Plavix and treatment for a bronchitis to determine when they would like to see her in the office. (2) Asthma: Qualifiers: Asthma severity: unspecified severity Asthma persistence: unspecified Asthma complication type: unspecified Qualified Code(s): J45.909 - Unspecified asthma, uncomplicated Code(s): J45.909 - Unspecified asthma, uncomplicated Status: Chronic Assessment and Plan: no evidence of an asthma exacerbation on this admission. Will continue her home medical regimen and of trelegy 200/62.5/25 at 1 puff q.day. Subjective Date/time seen: 11/05/22 11:04 Interval history: ?11/04/2022:? This is a new pulmonary consult for hemoptysis.? 62-year-old with a history of asthma since childhood, vocal cord dysfunction versus laryngeal spasm, hypertension, Parth's disease and fibromyalgia.? Regarding patient's asthma she is followed by an outside mission planner and I have an office note from 07/29/2022 stating she has moderate persistent asthma diagnosed in 2011.? She had spirometry on 07/29/2022 with an FEV1 of 2.04, 80% predicted, FVC 2.55 L, 78% predicted, a ratio of 79%.? She had lung volumes in 2019 with a total lung capacity of 97%, residual volume of 102% and a DLCO of 73%.? There were no changes in her spirometry between 02/01/2019 and 07/29/2022.? On 07/29/2022 the patient's last exacerbation was 06/2022 secondary to stopping her Tasha.? The plan was for her
--- NOTE | 2022-11-05 13:15 | PM.DS ---
DS: Admitting Diagnosis Discharge Date 11/05/2022 Admitting Diagnosis Hemoptysis DS: Discharge Diagnosis Discharge Diagnosis (1) Hemoptysis: Code(s): R04.2 - Hemoptysis Status: Acute Assessment and Plan: Patient presented with several episodes of hemoptysis. CTA of chest negative for PE. CT of the chest with no evidence of masses, nodules, ILD, or pleural disease. COVID and influenza negative. She was seen in consultation by pulmonology. Aspirin and Plavix held during admission. Patient treated with ceftriaxone azithromycin for bronchitis versus early CAP. Hemoptysis resolved. Patient will continue Levaquin 750 mg x 7 days. Aspirin resumed at time of discharge. Plavix held and will continue to hold until cardiology follow-up for risk versus benefit analysis. Patient has no cardiac stents. She will follow-up with her biomedical manager as an outpatient (2) Right thyroid nodule: Code(s): E04.1 - Nontoxic single thyroid nodule Status: Acute Assessment and Plan: CTA shows a 1.7cm right thyroid nodule with recommendations for outpatient ultrasound. Patient reports this has been assessed and biopsy in the past. She follows with Endocrinology and will be sure they are aware of recent CT findings (3) Hypertension: Code(s): I10 - Essential (primary) hypertension Status: Chronic Assessment and Plan: Blood pressure stable during admission. Continue home antihypertensive regimen (4) Coronary artery disease: Code(s): I25.10 - Atherosclerotic heart disease of [place] coronary artery without angina pectoris Status: Chronic Assessment and Plan: Recent cardiac cath 6 months ago which revealed nonobstructive coronary artery disease. Patient has no cardiac stents. She was placed on aspirin and Plavix by her asset protection associate. As above, will continue aspirin but hold Plavix until further evaluation by her asset protection associate. (5) Gastroesophageal reflux disease: Code(s): K21.9 - Gastro-esophageal reflux disease without esophagitis Status: Chronic Assessment and Plan: No acute issues (6) [place] disease: Code(s): E27.1 - Primary adrenocortical insufficiency Status: Chronic Assessment and Plan: Continue hydrocortisone and fludrocortisone. Continue with endocrinology follow-up (7) Hyperglycemia: Code(s): R73.9 - Hyperglycemia, unspecified Status: Acute Assessment and Plan: A1c is 5.7. Blood sugar stable. Continue Bydureon (8) Asthma: Qualifiers: Asthma complication type: unspecified Asthma persistence: unspecified Asthma severity: unspecified severity Qualified Code(s): J45.909 - Unspecified asthma, uncomplicated Code(s): J45.909 - Unspecified asthma, uncomplicated Status: Chronic Assessment and Plan: No exacerbation. Continue Trelegy inhaler and albuterol as needed DS: Summary Hospital Course Hospital Course: Date of admission: 11/03/2022 Date of discharge: 11/05/2022 Liliana Gabriel is a 62-year-old female with a history of CAD, vocal cord dysfunction, asthma, Lancaster disease, fibromyalgia, and GERD who presented to the emergency department on 11/03/2022 with complaints of hemoptysis ongoing for 2 days. On presentation to the ED, her vital signs were stable, she was afebrile, hemoglobin and hematocrit stable, influenza and COVID negative, BMP unremarkable, pulmonary perfusion scan showed normal perfusion, CXR with no acute cardiopulmonary disease, chest CT with small sliding hiatal hernia and no cardiopulmonary disease. She was admitted to the hospitalist service for further evaluation and management was seen in consultation by pulmonology. Please see above for further details. Aspirin and Plavix were held. Hemoptysis resolved. Patient was treated with course of antibiotics for bronchitis versus early CAP. She will continue home inhalers. Aspirin res
== END 2022-11-05 14:30 | disposition home or self-care (01) ==
LOC: ANHED 04:06 → ANH3MEDSUR 17:20
PROVIDERS: General Practice; Nurse Practitioner; Physician Assistant; Admitting Provider Chiropractor; Emergency Provider Emergency Medicine; PCP Family Medicine; Visit Provider Physician Assistant
DX: R04.2 Hemoptysis (principal); B95.61 Methicillin susceptible Staphylococcus aureus infection as the cause of diseases classified elsewhere; E04.1 Nontoxic single thyroid nodule; I10 Essential (primary) hypertension; I25.10 Atherosclerotic heart disease of native coronary artery without angina pectoris; K21.9 Gastro-esophageal reflux disease without esophagitis; E27.1 Primary adrenocortical insufficiency; R73.9 Hyperglycemia, unspecified; J45.909 Unspecified asthma, uncomplicated; M54.2 Cervicalgia; M79.7 Fibromyalgia; K44.9 Diaphragmatic hernia without obstruction or gangrene; Z20.822 Contact with and (suspected) exposure to COVID-19; G47.52 REM sleep behavior disorder; J38.00 Paralysis of vocal cords and larynx, unspecified; Z79.02 Long term (current) use of antithrombotics/antiplatelets; Z79.52 Long term (current) use of systemic steroids; Z79.51 Long term (current) use of inhaled steroids; Z79.1 Long term (current) use of non-steroidal anti-inflammatories (NSAID); Z79.82 Long term (current) use of aspirin; Z79.899 Other long term (current) drug therapy; Z82.49 Family history of ischemic heart disease and other diseases of the circulatory system
CPT/HCPCS: 36415; 71045; 71250; 71275; 78580; 80053; 83036; 83735; 85014; 85018; 85025; 85380; 85610; 85730; 87040; 87070; 87147; 87181; 87186; 87205; 87636; 96365; 96367; 96375; 96376; 99285; A9270; A9540; G0378; J0456; J0696; J1200; J7512; Q9967

== ENCOUNTER 2023-04-08 09:39 | Outpatient (CLI) | payer BC, SELFPAY ==
--- NOTE | ~2023-04-08 | US_ITS ---
Thyroid ultrasound. Clinical History: Nontoxic thyroid nodule COMPARISON: 08/19/2021 Findings: Real-time sonography of the thyroid gland was performed. The right lobe measures 5.3 x 2.3 x 2.4 cm. The left lobe measures 4.6 x 1.7 x 2.0 cm. The isthmus is 5 mm in AP diameter. There is a heterogeneous, solid spongiform nodule at the right lower pole measuring 2.4 x 1.2 x 2.3 c m in size. There is a smaller, similar-appearing nodule at the mid to upper right thyroid pole measur ing 1.0 x 0.9 x 0.8 cm. Impression: Right thyroid lobe nodules, probably without significant interval change from prior exam given time i nterval and differences in imaging technique.. Reviewed, dictated and finalized at location . Impression: Right thyroid lobe nodules, probably without significant interval change from p rior exam given time interval and differences in imaging technique..
== END 2023-04-08 09:40 | disposition home or self-care (01) ==
PROVIDERS: PCP Family Medicine; Visit Provider Internal Medicine Endocrinology, Diabetes & Metabolism
DX: E04.2 Nontoxic multinodular goiter (principal)
CPT/HCPCS: 76536

== ENCOUNTER 2023-04-23 08:10 | Outpatient (CLI) | payer BC, SELFPAY ==
--- NOTE | ~2023-04-23 | US_ITS ---
US abdomen limited INDICATION: Elevated liver enzyme levels. PROCEDURE: Realtime right upper abdominal ultrasound. COMPARISON: No prior studies for comparison. FINDINGS: The pancreas is normal without focal mass or pancreatic ductal dilation. Liver echotexture is increased, consistent with fatty infiltration. There is normal directional flow in the portal ve in. Gallbladder is surgically absent. Common bile duct measures 5 mm. IMPRESSION: 1: Hepatic steatosis. Reviewed, dictated and finalized at location L. IMPRESSION: 1: Hepatic steatosis.
== END 2023-04-23 08:11 | disposition home or self-care (01) ==
LOC: ANHIMG 08:14
PROVIDERS: PCP Family Medicine; Visit Provider Internal Medicine Endocrinology, Diabetes & Metabolism
DX: K76.0 Fatty (change of) liver, not elsewhere classified (principal)
CPT/HCPCS: 76705

== ENCOUNTER → 2023-05-08 11:01 | Outpatient (CLI) | payer BC, SELFPAY ==
--- NOTE | ~2023-05-08 | MM_ITS ---
EXAMINATION: MM screening [facility] BI w olga lidia HISTORY: Screening mammogram TECHNIQUE: Craniocaudal and mediolateral oblique 3-D tomosynthesis images were obtained and synthetic 2-D images were generated. CAD analysis was submitted and interpreted. COMPARISON: 01/13/2022, 12/24/2021, 12/22/2020 BREAST PARENCHYMAL COMPOSITION: There are scattered areas of fibroglandular density. FINDINGS: No suspicious mass, calcification, or architectural distortion are identified in either alayna ast to suggest malignancy. There has been no suspicious interval change. IMPRESSION: 1. No mammographic evidence of malignancy. 2. Recommend routine screening mammography in one year. BI-RADS Category 1: Negative Reviewed, dictated and finalized at location A.
== END ==
PROVIDERS: PCP Family Medicine; Visit Provider Family Medicine
DX: Z12.31 Encounter for screening mammogram for malignant neoplasm of breast (principal)
CPT/HCPCS: 77063; 77067

== ENCOUNTER → 2023-08-25 10:40 | Outpatient (CLI) | payer BC, SELFPAY ==
--- NOTE | ~2023-08-25 | XR_ITS ---
Clinical Indication: Cough PA and lateral views of the chest: Comparison: 11/03/2022 Findings: Calcified right upper granuloma noted. The lungs are otherwise clear, without evidence of f ocal consolidation or pleural effusion. Cardiomediastinal silhouette is within normal limits. Bones and soft tissues are unremarkable. Impression: No significant abnormality. Reviewed, dictated and finalized at location . Impression: No significant abnormality.
== END ==
PROVIDERS: PCP Family Medicine; Visit Provider Family Medicine
DX: R05.9 Cough, unspecified (principal)
CPT/HCPCS: 71046

== ENCOUNTER 2024-02-23 10:20 | Outpatient (CLI) | payer BC, SELFPAY ==
[2024-02-23 10:43] LABS: Basophils Percent Auto 0.3 % (0.2-1.2); Eosinophils Absolute Auto 0.1 K/mm3 (0-0.3); Eosinophils Percent Auto 1.1 % (0-4.4); Hematocrit 47.9 % (37.0-47.0); Immature Granulocyte Absolute 0.05 K/mm3 (0.00-0.031); Immature Granulocyte Percent A 0.4 % (0-0.5); Lymphocytes Absolute Auto 1.67 K/mm3 (0.9-3.2); Lymphocytes Percent Auto 14.3 % (18.3-44.2); Mean Corpuscular HGB Conc 31.3 g/dl (32-36); Mean Corpuscular Hemoglobin 26.6 pg (26-34); Mean Corpuscular Volume 85.1 fl (80-100); Mean Platelet Volume 10.2 fl (7.4-10.4); Monocytes Absolute Auto 0.9 K/mm3 (0.1-0.6); Monocytes Percent Auto 7.9 % (2.6-8.5); Neutrophils Absolute Auto 8.9 K/mm3 (1.3-6.7); Platelet Count Result 279 k/mm3 (150-375); Red Blood Count 5.63 M/mm3 (4.2-5.4); Red Cell Distribution Width 14.2 % (11.5-14.5); White Blood Count 11.7 K/mm3 (4.5-10.0)
[2024-02-23 10:53] LABS: Alanine Aminotransferase 32 U/L (6-35); Albumin Level 4.3 g/dL (3.5-5.1); Alkaline Phosphatase 84 U/L (38-126); Anion Gap 5 mmol/L (4-12); Aspartate Amino Transferase 33 U/L (14-36); Bilirubin,Total 0.6 mg/dL (0.2-1.3); Blood Urea Nitrogen 17 mg/dL (7-17); Calcium 9.5 mg/dL (8.4-10.2); Carbon Dioxide 30 mmol/L (22-30); Chloride 105 mmol/L (98-107); Estimated Glomerular Filt Rate > 60; Glucose 112 mg/dL (65-110); Potassium 4.1 mmol/L (3.4-5.0); Sodium 140 mmol/L (137-145)
[2024-02-23 19:41] LABS: Hemoglobin A1C 5.5 % (<5.7)
== END 2024-02-23 10:21 | disposition home or self-care (01) ==
PROVIDERS: PCP Family Medicine; Visit Provider Family Medicine
DX: J18.9 Pneumonia, unspecified organism (principal); I10 Essential (primary) hypertension; R73.01 Impaired fasting glucose
CPT/HCPCS: 36415; 80053; 83036; 85025

== ENCOUNTER 2024-02-23 10:43 | Outpatient (CLI) | payer BC, SELFPAY ==
--- NOTE | ~2024-02-23 | XR_ITS ---
EXAMINATION: XR chest 2V 02/23/2024 10:55 INDICATION: Cough PROCEDURE: 2 view chest COMPARISON: No prior studies for comparison. FINDINGS: The lungs are clear. The cardiomediastinal silhouette is within normal limits. There are no pleural effusions. There is no pneumothorax suspected. There are scattered calcified granulomas of the lungs. IMPRESSION: 1: NO ACUTE CARDIOPULMONARY DISEASE. Reviewed, dictated and finalized at location B.
== END 2024-02-23 10:44 ==
PROVIDERS: PCP Family Medicine; Visit Provider Family Medicine
DX: R05.9 Cough, unspecified (principal)
CPT/HCPCS: 71046

== ENCOUNTER 2024-03-30 07:49 | Outpatient (CLI) | payer BC, SELFPAY ==
--- NOTE | ~2024-03-30 | MR_ITS ---
MRI of the cervical spine Clinical History: Radiculopathy Technique: Axial T2-weighted and gradient images, and sagittal T1-weighted, T2-weighted, and STIR anya ges were acquired. Findings: There is no fracture or subluxation of the cervical spine. Vertebral bodies maintain normal height and alignment. No significant bone marrow signal abnormality seen. At C2-C3, there is no disc bulge or herniation. No spinal canal stenosis, cord compression, or neural foraminal narrowing. At C3-C4, there is no significant disc bulge or herniation. No spinal canal stenosis or cord compress ion. There is mild bilateral facet arthropathy with probable minimal bilateral neural foraminal narro wing. At C4-C5, there is disc osteophyte complex with probable focal disc protrusion at the left paracentra l region. No iban canal stenosis or cord compression. There is bilateral facet arthropathy. No defin ite neural foraminal narrowing. At C5-C6, there is moderate to advanced degenerative disc narrowing. There is disc osteophyte complex with mild canal stenosis but no iban cord compression. There is bilateral neural foraminal narrowin g with bilateral facet arthropathy, left worse than right. At C6-C7, there is advanced degenerative disc narrowing. There is disc osteophyte complex with mild c anal stenosis and minimal ventral cord compression. There is bilateral neural foraminal narrowing. No abnormal signal seen in the spinal cord. Paravertebral soft tissues are unremarkable. Impression: Moderate degenerative spondylosis at C5-C6 and C6-C7, as detailed above. Mild to moderate degenerative change at C4-C5. Reviewed, dictated and finalized at [facility]. Impression: Moderate degenerative spondylosis at C5-C6 and C6-C7, as detailed above. Mild to moderate degenerative change at C4-C5.
--- NOTE | ~2024-03-30 | MR_ITS ---
MRI of the lumbar spine Clinical History: Radiculopathy Technique: Axial T2-weighted images, and sagittal T1-weighted, T2-weighted, and T2 fat-sat images wer e acquired. Findings: No acute fracture seen. There is 4 mm retrolisthesis of L2 over L3. There is 5 mm anterolis thesis of L4 over L5. There is 3 mm retrolisthesis of L5 over S1. No suspicious bone marrow signal ab normality seen. At L1-L2, there is moderate to advanced degenerative disc narrowing. There is minimal disc bulge and moderate facet arthropathy. No central canal stenosis or definite neural foraminal narrowing. At L2-L3, there is severe degenerative disc narrowing. There is mild disc bulge with mild facet arthr opathy. There is mild central canal stenosis/thecal sac compression. There is moderate to severe righ t neural foraminal narrowing, and mild left neural foraminal narrowing. At L3-L4, there is moderate degenerative disc narrowing. Disc bulge, facet arthropathy, in focally pr ominent epidural fat result in severe spinal canal stenosis/thecal sac compression. There is severe b ilateral neural foraminal compromise. At L4-L5, there is diffuse disc bulge/uncovering. Severe facet arthropathy also contribute to severe spinal canal stenosis/thecal sac compression at this level. There is severe left neural foraminal com promise and moderate right neural foraminal compromise. At L5-S1, there is moderate degenerative disc narrowing. There is central disc protrusion with advanc ed facet arthropathy. Focally prominent epidural fat also contributes to severe spinal canal stenosis /thecal sac compression at this level. There is mild to moderate bilateral neural foraminal narrowing . Paravertebral soft tissues are unremarkable. Impression: Severe degenerative spondylosis, as detailed above. There is severe spinal canal stenosis/thecal sac compression L3-L4, L4-L5, L5-S1, related to degenerative factors and focally prominent epidural fat. Multilevel neural foraminal narrowing, as detailed above. 3 mm retrolisthesis of L5 over S1. 5 mm anterolisthesis of L4 over L5. 4 mm retrolisthesis of L2 over L3. Reviewed, dictated and finalized at location M. Impression: Severe degenerative spondylosis, as detailed above. There is severe spinal tomi l stenosis/thecal sac compression L3-L4, L4-L5, L5-S1, related to degenerative factors and focally prominent epidural fat. Multilevel neural foraminal narrowing, as detailed above. 3 mm retrolisthesis of L5 over S1. 5 mm anterolisthesis of L4 over L5. 4 mm retrolisthesis of L2 over L3.
== END 2024-03-30 07:50 ==
LOC: MICIMG 07:50
PROVIDERS: PCP Family Medicine
DX: M47.896 Other spondylosis, lumbar region (principal); M47.897 Other spondylosis, lumbosacral region; M43.17 Spondylolisthesis, lumbosacral region; M43.16 Spondylolisthesis, lumbar region; M47.892 Other spondylosis, cervical region
CPT/HCPCS: 72141; 72148

== ENCOUNTER 2024-08-04 13:47 | Outpatient (CLI) | payer BC, SELFPAY ==
--- NOTE | ~2024-08-04 | MM_ITS ---
EXAMINATION: MM screening [facility] BI w olga lidia HISTORY: Screening TECHNIQUE: Craniocaudal and mediolateral oblique 3-D tomosynthesis images were obtained and synthetic 2-D images were generated. CAD analysis was submitted and interpreted. COMPARISON: Comparison to multiple prior studies sequentially, with oldest reviewed study dated 12/22. BREAST PARENCHYMAL COMPOSITION: Not dense: There are scattered areas of fibroglandular density. FINDINGS: There is no evidence of suspicious mass, calcification, or architectural distortion to sugg est malignancy in either breast. There has been no suspicious interval change. IMPRESSION: 1. No mammographic evidence of malignancy. 2. Recommend routine screening mammography in one year. BI-RADS Category 1: Negative Reviewed, dictated and finalized at location B.
== END 2024-08-04 13:48 | disposition home or self-care (01) ==
LOC: MICIMG 13:48
PROVIDERS: PCP Family Medicine; Visit Provider Family Medicine
DX: Z12.31 Encounter for screening mammogram for malignant neoplasm of breast (principal)
CPT/HCPCS: 77063; 77067